=== PATIENT | female | born 1975 | race Caucasian/White ===

== ENCOUNTER 2020-03-04 20:57 | Inpatient (IN) | payer OTHER, SELFPAY ==
[2020-03-04] VITALS (15 sets, daily range): BP systolic 125–139; BP diastolic 75–85; PULSE 67–98; RESP 15–23; TEMP 36.4; O2SAT 90–99
--- NOTE | ~2020-03-04 | CT_ITS ---
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 Covid Pneumonia. TECHNIQUE: Computed tomographic angiography (CTA) of the chest, abdomen and pelvis was performed with 100 mL Omnipaque-350 intravenous contrast. The dose-length product was 2033.27 mGy-cm. Maximum inten sity projection 3D-reconstructions of the aorta and other arteries were constructed by the [employer] st on a separate workstation. Automated exposure control and iterative reconstruction technique were employed. COMPARISON: CT dated 03/04/2020. FINDINGS: Study is technically adequate without evidence for pulmonary embolism. Evaluation of the pe ripheral pulmonary arteries limited by motion artifact. No thoracic lymphadenopathy. Small pleural ef fusions. Cardiomegaly. No evidence for aortic aneurysm or dissection. There is patchy groundglass opa cification throughout both lungs, compatible with pneumonia. No endobronchial lesions. The liver, spleen, pancreas, adrenal glands and kidneys are unremarkable. Gallbladder is present. No free air or free fluid. Small fat-containing umbilical hernia. Small urachal cyst. Partial sacralizat ion of the left L5 transverse process. No acute osseous abnormality. No abnormal pelvic masses or flu id collections. IMPRESSION: 1. Patchy bilateral groundglass opacification throughout both lungs, most likely pneumonia. Edema les s favored. 2: Small pleural effusions. 3: No evidence for pulmonary embolism. Reviewed, dictated and finalized at location B. T METAL SUPERINTENDENT IMPRESSION: 1. Patchy bilateral groundglass opacification throughout both lungs, most likel y pneumonia. Edema less favored. 2: Small pleural effusions. 3: No evidence for pulmonary embolism.
--- NOTE | ~2020-03-04 | XR_ITS ---
EXAMINATION: XR chest 1V portable EXAM DATE: 03/04/2020 22:48 INDICATION: Shortness of breath, COVID positive for 5 days. Abdominal pain diarrhea and fever. TECHNIQUE: Portable AP frontal chest x-ray was obtained. Comparison is made to prior examination from 03/04/2020. FINDINGS: Scattered subsegmental bibasilar ill-defined infection and/or atelectasis. Upper lung zones are clear. Cardiomediastinal silhouette is normal. There is no pneumothorax suspected. There are no pleural effusions. IMPRESSION: 1. Scattered bibasilar subsegmental infection and/or atelectasis. Reviewed, dictated and finalized at location A. SS SERVICES ASSISTANT
--- NOTE | 2020-03-04 21:04 | ED.ABDPAIN ---
HPI - Abdominal Pain General Chief Complaint: Abdominal Pain Stated Complaint: lower abd pain/ covid + Source: patient and EMS Mode of arrival: EMS Limitations: no limitations History of Present Illness HPI narrative: 44 years old white female presents to the ED by ambulance because of fever, abdominal pain, intermittent chest heaviness. Patient had sudden onset of lower abdominal pain when she was having a bowel movement with diarrhea. Patient states she almost had a fainting episode on the toilet. Patient denies loss of consciousness. Patient started having Covid symptoms 1 week ago, patient denies. 3 days later was tested positive for COVID-19 Related Data Home Medications Medication Instructions Recorded Confirmed clonazepam [Klonopin] 1 mg PO DAILY PRN 03/04/20 hydrocodone-acetaminophen [[place]] 1 tablet PO HS PRN 03/04/20 lisinopril-hydrochlorothiazide 1 tablet PO DAILY 03/04/20 rosuvastatin [Crestor] 40 mg PO DAILY 03/04/20 Allergies Allergy/AdvReac Type Severity Reaction Status Date / Time No Known Allergies Allergy Verified 03/04/20 21:06 Review of Systems Review of Systems: Narrative: CONSTITUTIONAL: Fever EYES: Denies visual changes, redness, or discharge. ENT: Denies rhinorrhea, congestion, sore throat, or otalgia. CARDIOVASCULAR: Denies chest pain, palpitations, or edema. RESPIRATORY: Coughing GASTROINTESTINAL: Denies abdominal pain, nausea, vomiting, or diarrhea. GENITOURINARY: Denies dysuria or hematuria. SKIN: Denies rash or itching. MUSCULOSKELETAL: Denies back pain, joint pain, or myalgia. NEUROLOGIC: Denies headache, numbness, or weakness. PSYCHIATRIC: Denies anxiety or depression. PMFSH Family History Family History Mother Hypertension Social History Social History Smoking status: Former smoker Second hand tobacco smoke exposure: No Smoking end date: 04/06/08 Alcohol intake: never Exam Narrative: Exam Narrative: General appearance: Well-developed, well-nourished Skin: Normal color Eyes: Clear conjunctiva ENT: Oropharynx normal, ears normal, nose normal Neck: Supple, nontender Chest and respiratory: Airway patent, no respiratory distress, no accessory muscle use Heart: Regular rate/rhythm Abdomen: Soft, nontender, no organomegaly, quiet bowel sounds Musculoskeletal: Normal range of motion, nontender back Neurologic: Alert and oriented ?3, 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 Labs, IV fluid, CT abdomen, pelvis and chest to rule out the possibility of pulmonary embolism ordered. Further plan to follow Imaging Data My impression: CTA chest showed Nodular groundglass consolidation in a peripheral distribution in both lungs surrounding patchy groundglass and compatible with history of Covid. Superimposed pulmonary edema is also possible. Trace bilateral pleural effusion. No definite evidence of pulmonary emboli. However evaluation of the distal branches are limited due to motion artifacts. CT abdomen and pelvis with contrast showed no acute findings. Critical Care Time Critical Care Time Critical Care Time: Yes Total Critical Care Time: 50 Discharge Plan Discharge Clinical Impression: Pneumonia due to 2019 novel coronavirus, Acute respiratory failure with hypoxia Patient Disposition: Still a Patient Condition: Guarded Prognosis Additional Instructions: Admission to hospitalist, remdesivir and the dexamethasone started. P
[2020-03-04] MEDS: HYDROmorphone HCL INJ (*CRX) 1 MG/ML SYR 0.5 MG IV PUSH (21:22)
[2020-03-04] MEDS: SODIUM CHLORIDE 0.9% IV 1,000 ML 999 ML IV CONT (21:22)
--- NOTE | 2020-03-04 22:10 | PC.NURSE ---
Patient was tough stick, this nurse and 2 zone maintenance technician attempted to obtain labs. zone maintenance technician did obtain labs and labs and urine are sent down at this time.
[2020-03-04 22:14] LABS: Basophils Percent Auto 0.2 % (0.2-1.2); Eosinophils Percent Auto 0.3 % (0-4.4); Hematocrit 40.4 % (37.0-47.0); Hemoglobin 13.8 g/dL (12.0-15.0); Immature Granulocyte Absolute 0.01 K/mm3 (0.00-0.031); Immature Granulocyte Percent A 0.2 % (0-0.5); Lymphocytes Absolute Auto 1.27 K/mm3 (0.9-3.2); Lymphocytes Percent Auto 20.7 % (18.3-44.2); Mean Corpuscular HGB Conc 34.2 g/dl (32-36); Mean Corpuscular Volume 90.8 fl (80-100); Mean Platelet Volume 10.7 fl (7.4-10.4); Monocytes Absolute Auto 0.4 K/mm3 (0.1-0.6); Monocytes Percent Auto 5.7 % (2.6-8.5); Neutrophils Absolute Auto 4.5 K/mm3 (1.3-6.7); Neutrophils Percent Auto 72.9 % (45.5-73.1); Platelet Count Result 172 k/mm3 (150-375); Red Blood Count 4.45 M/mm3 (4.2-5.4); Red Cell Distribution Width 11.9 % (11.5-14.5); White Blood Count 6.1 K/mm3 (4.5-10.0)
[2020-03-04 22:18] LABS: Add Urine Microscopic? NO; Appearance Urine Clear (Clear); Bilirubin Urine Negative (Negative); Blood Urine Negative (Negative); Color Urine Yellow (Yellow); Glucose Urine UA Negative (Negative); Ketones Urine Negative (Negative); Leukocyte Esterase Ur Negative LEU/UL (Negative); Nitrate Urine Negative (Negative); Protein Urine Negative (Negative); Specific Grav Ur 1.027 (1.001-1.035); Urobilinogen Urine Negative mg/dL (<2.0)
[2020-03-04 22:26] LABS: Alanine Aminotransferase 23 U/L (4-35); Albumin Level 3.4 g/dL (3.5-5.1); Alkaline Phosphatase 59 U/L (38-126); Anion Gap 6 mmol/L (8-16); Aspartate Amino Transferase 31 U/L (14-36); Bilirubin,Total 0.3 mg/dL (0.2-1.3); Blood Urea Nitrogen 16 mg/dL (7-17); Calcium 7.9 mg/dL (8.4-10.2); Carbon Dioxide 23 mmol/L (22-30); Chloride 109 mmol/L (98-107); Estimated CRCL calculation 110 ml/min; Estimated Glomerular Filt Rate > 60; Glucose 113 mg/dL (65-105); Lipase 137 U/L (23-300); Potassium 3.9 mmol/L (3.4-5.0); Sodium 138 mmol/L (137-145)
--- NOTE | 2020-03-04 22:27 | PC.NURSE ---
Patient's oxygen saturation decreased to 85% on the monitor, ERP Dr. Matias notified and orders placed. Per ERP states ABG and chest xray to be done before oxygen placed on patient.
[2020-03-04 22:43] LABS: Alveolar/Arterial O2 Gradient 32.5 mmHg; Base Excess ABG -1.3 mEq/l (+/-2.0); Fractional Inspired Oxygen 21 %; HCO3 ABG 24.1 mEq/l (22.0-26.0); Oxygen Content ABG 18.4 %vol (16.0-22.0); Oxygen Saturation ABG 92.5 % (95.0-100.0); Oxyhemoglobin 92.4 % THb (90.0-100.0); PCO2 ABG 42.8 mmHg (35.0-45.0); PO2 FiO2 Ratio Arterial Blood 3.14 %; Total Hemoglobin 14.2 g/dL (12.0-18.0); pH ABG 7.368 (7.350-7.450)
[2020-03-04 22:44] LABS: Modified Allen's Test Pass; Site Drawn LEFT RADIAL
--- NOTE | 2020-03-04 23:04 | PC.NURSE ---
Patient in CT at this time.
--- NOTE | 2020-03-04 23:13 | PC.NURSE ---
Patient placed in 2L via NC per [facility] per ERP Dr. Matias.
[2020-03-04 23:24] LABS: D Dimer 0.47 ug/mL (<0.48)
[2020-03-05] VITALS (11 sets, daily range): BP systolic 111–122; BP diastolic 58–81; PULSE 55–83; RESP 16–20; TEMP 36.1–36.7; O2SAT 92–99; BMI 40.1
--- NOTE | 2020-03-05 00:32 | PM.IMHP ---
H&P: HPI History of Present Illness Date/Time: 03/05/20 00:32 Chief complaint: COVID PNEUMONIA, ACUTE HYPOXIC RESPIRATORY FAILURE Narrative: Nikki Campbell is a 44 year old female with PMHx significant for HTN, Dislipidemia, Anxiety presented to ED after she had excrutiating pain like passin out whilae she was having a bowel movement sitting on the toilette, had diarrhea for about 3 days now, was recently diagnosed with CoVID 19 tested positive 5 days ago, has had muscle aches and pains, fevers, chills, sob, dry cough ,abdominal pain, diarrhea. Preliminary work up is significant for CTA with ground glass opacity of the lungs. CT of abdomen and pelvis was low yielding. Review of Systems Review of Systems: Narrative: Fevers, chills, muscle aches and pains, sob, dry cough, abdominal pain. Constitutional: Constitutional: Reports body ache(s), Reports chills, Reports fatigue and Reports fever(s) Eyes: Comments: no vision changes. ENT: Comments: nasal congestion, no sore throat. Cardiovascular: Comments: no chest pain. Respiratory: Comments: sob, dry cough. Gastrointestinal: Comments: abdominal pain, diarrhea. Musculoskeletal: Musculoskeletal: Reports myalgias Integumentary/Breasts: Comments: no rashes. Neurologic: Comments: no sensory motor deficit. Hematologic/Lymphatic: Comments: no LAP PMFSH Family History Family History Mother Hypertension Social History Social History Smoking status: Former smoker Second hand tobacco smoke exposure: No Smoking end date: 04/06/08 Alcohol intake: never Meds Home Medications and Allergies Home Medications Medication Instructions Recorded Confirmed Type clonazepam [Klonopin] 1 mg PO DAILY PRN 03/04/20 History hydrocodone-acetaminophen [[place]] 1 tablet PO HS PRN 03/04/20 History lisinopril-hydrochlorothiazide 1 tablet PO DAILY 03/04/20 History rosuvastatin [Crestor] 40 mg PO DAILY 03/04/20 History Allergies Allergy/AdvReac Type Severity Reaction Status Date / Time No Known Allergies Allergy Verified 03/04/20 21:06 Vital Signs Vital Signs - 24 hr 03/04/20 20:54 03/04/20 21:10 03/04/20 21:15 Temperature 97.6 F Pulse Rate 82 98 79 Respiratory Rate 22 H Blood Pressure 125/83 Pulse Oximetry 92 90 03/04/20 21:30 03/04/20 21:45 03/04/20 22:00 Temperature Pulse Rate 74 72 74 Respiratory Rate 16 21 H 22 H Blood Pressure Pulse Oximetry 98 90 91 03/04/20 22:02 03/04/20 22:15 03/04/20 22:30 Temperature Pulse Rate 68 67 70 Respiratory Rate 20 19 20 Blood Pressure 129/85 Pulse Oximetry 91 91 94 03/04/20 22:45 03/04/20 22:47 03/04/20 23:13 Temperature Pulse Rate 73 77 76 Respiratory Rate 23 H 19 19 Blood Pressure 127/75 136/81 Pulse Oximetry 99 03/04/20 23:17 03/04/20 23:33 03/04/20 23:45 Temperature Pulse Rate 85 75 78 Respiratory Rate 15 16 21 H Blood Pressure 139/77 Pulse Oximetry 98 97 95 Exam Narrative: Exam Narrative: 44 yo female presents to ED due to abdominal pain, sob, dry cough, fevers, chills. Const: General: cooperative, comfortable, no acute distress, well developed, alert, awake, Physically active and other (Acutely ill looking.) Nutritional Appearance: average body habitus Orientation/consciousness: patient oriented x3 Limitations: no limitations HENMT: Head: normal to inspection and normocephalic Ears: hearing grossly normal bilaterally General nose exam: Normal external nose present Face and sinus: normal facial exam Mouth: Yes Normal oral and palatal mucosa present Eyes: General: appearance normal, both eyes and all related structures Pupils: Equal, round and reactive pupils present EOM: EOMs intact bilaterally Neck: Neck: normal visual inspection, no lymphadenopathy and no JVD Resp: Effort & Inspection: normal respiratory effort Auscultation: clear to
[2020-03-05] MEDS: REMDESIVIR 200 MG/NS 250 ML 200 MG/250 ML BAG 250 MG IVPB (00:37)
--- NOTE | 2020-03-05 02:22 | ADMGEN ---
At 0120 am, this patient, Nikki Campbell, was admitted to [address] [place] [address] Room 321-01. Patient/family oriented to hospital policies and general routines including ID bracelet, bed and alarms, visiting hours, pain management, procedures, bathroom and other care routines, personal items, smoking policy, room service/diet, and visiting hours. Information on how to activate the Rapid Response Team has been discussed. Patient/Family are encouraged to report perceived risks to care and to ask questions if they do not understand what they are told or what they should do.
[2020-03-05 08:25] LABS: Alanine Aminotransferase 20 U/L (4-35)
[2020-03-05] MEDS: DEXAMETHASONE SOD PHOS INJ 4 MG/ML VIAL 6 MG IV PUSH (08:59)
[2020-03-05] MEDS: hydroCHLOROthiazide 12.5 MG CAPSULE PO (08:59)
[2020-03-05] MEDS: lisinopriL 10 MG TABLET PO (08:59)
[2020-03-05] MEDS: POTASSIUM CHLORIDE 20 MEQ TABLET.ER PO (08:59)
[2020-03-05] MEDS: ALBUTEROL SULFATE (*SP) AEROSOL 1 PUFF 2 PUFF INHALATION ×2 (11:20→16:13)
--- NOTE | 2020-03-05 11:44 | PCRCNOTE ---
Window of time for administration has passed. See next scheduled administration. for 0800 tx.
--- NOTE | 2020-03-05 15:41 | PM.IMPN ---
Progress Note: A&P Assessment and Plan (1) Pneumonia due to 2019 novel coronavirus: Code(s): U07.1 - COVID-19; J12.89 - Other viral pneumonia Status: Acute Assessment and Plan: Admit to Covid isoloation Vitals as per unit protocol heart healthy diet Remdesivir + Dexamethasone + nebulizer txs + mucinex + serial labs and CXRs to trend informed patient of CXR and CT scan results, no PE, bilateral bibasilar COVID pneumonia noted. Dimer wnl at 0.47 ordered Incentive Spirometer and PT eval (2) Acute respiratory failure with hypoxia: Code(s): J96.01 - Acute respiratory failure with hypoxia Status: Acute Assessment and Plan: Currently on 2 L by NC (increased from admission) O2sat at 96% Continuous pulse ox. see above plan (3) Abdominal pain, vomiting, and diarrhea: Code(s): R10.9 - Unspecified abdominal pain; R11.10 - Vomiting, unspecified; R19.7 - Diarrhea, unspecified Status: Acute Assessment and Plan: Likely secondary to Covid 19 infection. lipase wnl at 137 UA clear Supportive care slowly improving nausea helped with zofran eating 25-50% meals (4) HTN (hypertension): Code(s): I10 - Essential (primary) hypertension Status: Acute Assessment and Plan: Well controlled Resume home meds BP 120/72 and 122/72 HR 55-62 Subjective Date/time seen: 03/05/20 15:42 Nikki is feeling slightly better than admission, but still requiring supplemental O2. She is not coughing yet, but hasnt used an Incentive Spirometer or gotten out of bed today yet. Ordered out of bed for meals and PT eval. She is currently requiring 2 L O2 NC with bedrest. Ordered IS, started on Lovenox BID, mucinex, nebulizer txs, Remdesivir, and serial CXRs, and serial labs to trend. Will collect a sputum culture if productive cough starts. 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 She continues to have nausea, but no vomiting today. Stated that the zofran is helping. She was able to eat her sandwich for lunch, but that was all. Review of Systems Constitutional: Constitutional: Reports as per HPI, Reports body ache(s), Reports chills, Reports fatigue, Reports fever(s), Reports lethargy, Reports malaise and Reports weakness Eyes: Eyes: Reports as per HPI, Denies exophthalmos, Denies diplopia, Denies floaters and Denies loss of peripheral vision ENT: Denies facial pain, Denies headache(s), Denies odynophagia and Denies tinnitus Cardiovascular: Cardiovascular: Denies chest pain, Denies chest pain at rest, Denies chest pain with activity, Reports lightheadedness, Reports dyspnea and Reports dyspnea on exertion Respiratory: Respiratory: Reports as per HPI, Denies chest congestion, Denies cough, Denies hemoptysis, Reports dyspnea and Denies snoring Gastrointestinal: Gastrointestinal: Reports as per HPI and Denies odynophagia Genitourinary: Genitourinary: Reports as per HPI Musculoskeletal: Musculoskeletal: Reports as per HPI and Reports myalgias Integumentary/Breasts: Skin/Breast: Reports as per HPI Neurologic: Reports as per HPI, Reports Normal hearing present, Denies Abnormal speech present, Reports syncope (near syncope at home), Denies headache(s) and Denies memory loss Psychiatric: Psychiatric: Reports as per HPI and Denies confusion Endocrine: Endocrine: Reports as per HPI and Reports fatigue Exam Narrative: Exam Narrative: 44 yo female presents to ED due to abdominal pain, sob, dry cough, fevers, chills. Const: General: cooperative, comfortable, no acute distress, well developed, alert, awake, Physically active, in distress mild, ill appearing and other (Acutely ill looking.); No acute distress Nutritional Appearance: average body habitus Orientation/consciousness: patient oriented x3 Limitations: no limitations HENMT: Head: normal to inspection and normocephalic Ears: hearing grossly normal
[2020-03-05 15:57] LABS: Hematocrit 42.7 % (37.0-47.0); Hemoglobin 14.6 g/dL (12.0-15.0); Mean Corpuscular HGB Conc 34.2 g/dl (32-36); Mean Corpuscular Hemoglobin 30.6 pg (26-34); Mean Corpuscular Volume 89.5 fl (80-100); Mean Platelet Volume 10.7 fl (7.4-10.4); Platelet Count Result 183 k/mm3 (150-375); Red Blood Count 4.77 M/mm3 (4.2-5.4); Red Cell Distribution Width 11.8 % (11.5-14.5); White Blood Count 4.7 K/mm3 (4.5-10.0)
[2020-03-05] MEDS: HYDROcodone/acetaminophen (*CRX) 5-325 MG TABLET 1 TAB PO ×2 (16:26→20:42)
[2020-03-05] MEDS: ENOXAPARIN 40 MG/0.4 ML SYRINGE SUB-Q (20:14)
[2020-03-05] MEDS: guaiFENesin 12 HR 600 MG TABCR 1200 MG PO (20:14)
[2020-03-05] MEDS: FAMOTIDINE 20 MG TABLET PO (20:14)
[2020-03-05] MEDS: clonazePAM (*CRX) 0.5 MG TABLET 1 MG PO (20:35)
[2020-03-05] MEDS: REMDESIVIR 100 MG/NS 250 ML 100 MG/250 ML BAG 250 MG IVPB (23:39)
[2020-03-06] VITALS (11 sets, daily range): BP systolic 96–117; BP diastolic 52–80; PULSE 54–72; RESP 16–20; TEMP 36.1–36.6; O2SAT 93–99
[2020-03-06] MEDS: ALBUTEROL SULFATE NEB 2.5 MG/0.5 ML INH INHALATION (03:18)
[2020-03-06] MEDS: IPRATROPIUM BR 0.02% INH SOLN 0.5 MG/2.5 ML VIAL INHALATION (03:18)
[2020-03-06 07:54] LABS: Alanine Aminotransferase 21 U/L (4-35); Albumin Level 3.4 g/dL (3.5-5.1); Alkaline Phosphatase 45 U/L (38-126); Anion Gap 2 mmol/L (8-16); Aspartate Amino Transferase 26 U/L (14-36); Bilirubin,Total 0.5 mg/dL (0.2-1.3); Blood Urea Nitrogen 13 mg/dL (7-17); CRP < 0.5 mg/dL (<1.0); Calcium 8.6 mg/dL (8.4-10.2); Carbon Dioxide 30 mmol/L (22-30); Chloride 105 mmol/L (98-107); Estimated CRCL calculation 110 ml/min; Estimated Glomerular Filt Rate > 60; Glucose 120 mg/dL (65-105); Lactate Dehydrogenase 405 U/L (313-618); Sodium 137 mmol/L (137-145)
[2020-03-06] MEDS: HYDROcodone/acetaminophen (*CRX) 5-325 MG TABLET 1 TAB PO ×3 (08:49→20:29)
[2020-03-06] MEDS: ENOXAPARIN 40 MG/0.4 ML SYRINGE SUB-Q ×2 (08:51→20:27)
[2020-03-06] MEDS: DEXAMETHASONE SOD PHOS INJ 4 MG/ML VIAL 6 MG IV PUSH (08:51)
[2020-03-06] MEDS: FAMOTIDINE 20 MG TABLET PO ×2 (08:52→20:28)
[2020-03-06] MEDS: lisinopriL 10 MG TABLET PO (08:52)
[2020-03-06] MEDS: hydroCHLOROthiazide 12.5 MG CAPSULE PO (08:52)
[2020-03-06] MEDS: guaiFENesin 12 HR 600 MG TABCR 1200 MG PO ×2 (08:52→20:28)
[2020-03-06] MEDS: ALBUTEROL SULFATE (*SP) AEROSOL 1 PUFF 2 PUFF INHALATION ×4 (09:10→21:59)
--- NOTE | 2020-03-06 15:25 | PM.IMPN ---
Progress Note: A&P Assessment and Plan (1) Pneumonia due to 2019 novel coronavirus: Code(s): U07.1 - COVID-19; J12.89 - Other viral pneumonia Status: Acute Assessment and Plan: As evident of chest CTA; no PE noted. Patient feeling better today. Still requiring 1L O2 NC (although EMR documentation has RA). Clinical improvement overnight Continue treatment with Remdesivir (3/5) Continue with dexamethasone (day 3) Continue supportive care with PRN albuterol, IS, Tylenol for fevers, Mucinex for cough Trend Labs tomorrow Wean O2 as tolerated Monitor for clinical improvement (2) Acute respiratory failure with hypoxia: Code(s): J96.01 - Acute respiratory failure with hypoxia Status: Acute Assessment and Plan: Currently on 1 L O2 NC. Likely secondary to above Wean O2 as tolerated Continue treatment as above (3) Abdominal pain, vomiting, and diarrhea: Code(s): R10.9 - Unspecified abdominal pain; R11.10 - Vomiting, unspecified; R19.7 - Diarrhea, unspecified Status: Acute Assessment and Plan: Likely secondary to Covid [address] abd/pelvis unremarkable. Lipase WNL. This appears to have resolved. Continue supportive care Zofran PRN Monitor (4) HTN (hypertension): Code(s): I10 - Essential (primary) hypertension Status: Acute Assessment and Plan: BP 110s sys this afternoon. Continue home meds Subjective Date/time seen: 03/06/20 15:25 Interval history: Patient is a 44 yo F with history of HTN, Dyslipidemia, and Anxiety who is here for treatment of COVID pneumonia and acute respiratory failure with hypoxia likely due to same. Patient states she feels better today. She feels a bit jittery, but thinks this is due to the steroid therapy. Her SOB has improved and her diarrhea/abdominal pain have resolved. She is tolerating PO okay. She notes sweats, but no subjective fevers/chills. No other complaints. Denies myalgias/arthralgias, headaches, cp/palpitations, n/v/d/c, current abd pain, dysuria, hematuria, cloudy urine, calf pain/swelling. Review of Systems Review of Systems: All systems reviewed & are unremarkable except as noted in HPI and below Exam Narrative: Exam Narrative: General: Patient resting supine in bed in no acute distress. HEENT: Normocephalic, EOMI, oral mucosa moist. Cardiovascular: Rate and rhythm are regular. No notable murmur, rub, or gallop. Respiratory: Lungs clear to auscultation all dennison, decreased BS diffusely. Non-labored breathing. On 1L O2 NC Abdomen: Soft, non-tender, non-distended, bowel sounds present but hypoactive Extremities: Peripheral pulses intact. No edema. Neuro: No focal neurological deficits. Speech is clear. Objective Data Vital Signs Vital Signs: Last Vital Signs Temp 97.6 F 03/06/20 12:00 Pulse 63 03/06/20 12:00 Resp 20 03/06/20 12:00 BP 113/80 03/06/20 12:00 Pulse Ox 95 03/06/20 12:20 Intake/Output Intake/Output: Intake & Output 03/03/20 03/04/20 03/05/20 03/06/20 23:59 23:59 23:59 23:59 Intake Total 1000 1940 1110 Output Total 1100 Balance 5885 [id number] 9021 Meds/Results Medications: Active Medications Generic Name Dose Route Start Last Admin Trade Name Freq PRN Reason Stop Dose Admin Acetaminophen 1,000 mg 03/05/20 15:22 Acetaminophen 500 Mg Tablet PO Q6H PRN Mild Pain or Fever Hydrocodone Bitart/Acetaminophen 1 tab 03/05/20 15:23 03/06/20 14:47 Hydrocodone/Acetaminophen (*Crx) 5-325 Mg Tablet PO 1 tab Q6H PRN Administration Pain 4-10 Albuterol 2.5 mg 03/05/20 20:00 03/06/20 03:18 Albuterol Sulfate Neb 2.5 Mg/0.5 Ml Inh INHALATION 2.5 mg Q6HRT NEYMAR Administration Albuterol 2 puff 03/06/20 08:00 03/06/20 12:20 Albuterol Sulfate (*Sp) Aerosol 1 Puff INHAL
[2020-03-06 16:06] LABS: Hematocrit 42.9 % (37.0-47.0); Hemoglobin 14.7 g/dL (12.0-15.0); Mean Corpuscular HGB Conc 34.3 g/dl (32-36); Mean Corpuscular Hemoglobin 30.8 pg (26-34); Mean Corpuscular Volume 89.9 fl (80-100); Mean Platelet Volume 10.7 fl (7.4-10.4); Platelet Count Result 208 k/mm3 (150-375); Red Blood Count 4.77 M/mm3 (4.2-5.4); Red Cell Distribution Width 11.9 % (11.5-14.5); White Blood Count 5.6 K/mm3 (4.5-10.0)
[2020-03-06] MEDS: clonazePAM (*CRX) 0.5 MG TABLET 1 MG PO (20:28)
[2020-03-06] MEDS: ALBUTEROL SULFATE (*SP) INHALER 1 PUFF (22:00)
[2020-03-06] MEDS: REMDESIVIR 100 MG/NS 250 ML 100 MG/250 ML BAG 250 MG IVPB (22:43)
[2020-03-07] VITALS: BP 101/54; PULSE 50; RESP 20; TEMP 36.8; O2SAT 95
[2020-03-07 04:00] VITALS: BP 101/58; PULSE 50; RESP 20; TEMP 37; O2SAT 96
[2020-03-07 06:43] LABS: Basophils Percent Auto 0.3 % (0.2-1.2); Eosinophils Percent Auto 0.1 % (0-4.4); Hematocrit 43.6 % (37.0-47.0); Hemoglobin 14.5 g/dL (12.0-15.0); Immature Granulocyte Absolute 0.03 K/mm3 (0.00-0.031); Immature Granulocyte Percent A 0.4 % (0-0.5); Lymphocytes Absolute Auto 2.73 K/mm3 (0.9-3.2); Lymphocytes Percent Auto 35.9 % (18.3-44.2); Mean Corpuscular HGB Conc 33.3 g/dl (32-36); Mean Corpuscular Hemoglobin 29.6 pg (26-34); Monocytes Absolute Auto 0.5 K/mm3 (0.1-0.6); Neutrophils Absolute Auto 4.3 K/mm3 (1.3-6.7); Neutrophils Percent Auto 56.3 % (45.5-73.1); Platelet Count Result 242 k/mm3 (150-375); Red Cell Distribution Width 11.9 % (11.5-14.5); White Blood Count 7.6 K/mm3 (4.5-10.0)
[2020-03-07 06:56] LABS: Magnesium 1.8 mg/dL (1.6-2.3)
[2020-03-07 06:57] LABS: Alanine Aminotransferase 24 U/L (4-35); Alkaline Phosphatase 48 U/L (38-126); Anion Gap 4 mmol/L (8-16); Aspartate Amino Transferase 26 U/L (14-36); Bilirubin,Total 0.6 mg/dL (0.2-1.3); Blood Urea Nitrogen 17 mg/dL (7-17); Calcium 9.2 mg/dL (8.4-10.2); Carbon Dioxide 32 mmol/L (22-30); Chloride 101 mmol/L (98-107); Estimated CRCL calculation 110 ml/min; Estimated Glomerular Filt Rate > 60; Glucose 107 mg/dL (65-105); Potassium 3.9 mmol/L (3.4-5.0); Sodium 137 mmol/L (137-145)
[2020-03-07 08:00] VITALS: BP 107/60; PULSE 50; RESP 16; TEMP 36.9; O2SAT 99
[2020-03-07] MEDS: ENOXAPARIN 40 MG/0.4 ML SYRINGE SUB-Q (08:50)
[2020-03-07] MEDS: DEXAMETHASONE SOD PHOS INJ 4 MG/ML VIAL 6 MG IV PUSH (08:50)
[2020-03-07] MEDS: FAMOTIDINE 20 MG TABLET PO (08:50)
[2020-03-07] MEDS: guaiFENesin 12 HR 600 MG TABCR 1200 MG PO (08:51)
[2020-03-07] MEDS: ALBUTEROL SULFATE (*SP) AEROSOL 1 PUFF 2 PUFF INHALATION ×4 (09:04→20:53)
[2020-03-07] MEDS: ONDANSETRON INJ 4 MG/2 ML VIAL IV PUSH (09:16)
[2020-03-07] MEDS: ACETAMINOPHEN 500 MG TABLET 1000 MG PO (11:10)
[2020-03-07 12:00] VITALS: BP 114/58; PULSE 79; RESP 16; TEMP 36.9; O2SAT 94
--- NOTE | 2020-03-07 13:40 | PM.DS ---
DS: Admitting Diagnosis Admitting Diagnosis Admitting Diagnosis: COVID PNEUMONIA, ACUTE HYPOXIC RESPIRATORY FAILURE DS: Discharge Diagnosis Discharge Diagnosis (1) Pneumonia due to 2019 novel coronavirus: Code(s): U07.1 - COVID-19; J12.89 - Other viral pneumonia Status: Acute Assessment and Plan: As evident of chest CTA; no PE noted. Patient feeling better again today and wishing to be discharge. Has been on RA since 03/06. Clinical improvement again overnight Received Remdesivir x 4 days during stay Dexamethasone x 4 days during stay Continue supportive care with PRN albuterol, IS, Tylenol for fevers, Mucinex for cough F/u with PCP Encouraged PO intake (2) Acute respiratory failure with hypoxia: Code(s): J96.01 - Acute respiratory failure with hypoxia Status: Acute Assessment and Plan: RA since 03/06. Likely secondary to above D/c today after 4th dose of Remdesivir (3) Abdominal pain, vomiting, and diarrhea: Code(s): R10.9 - Unspecified abdominal pain; R11.10 - Vomiting, unspecified; R19.7 - Diarrhea, unspecified Status: Acute Assessment and Plan: Likely secondary to Covid [address] abd/pelvis unremarkable. Lipase WNL. This appears to have resolved. Continue supportive care Zofran PRN (4) HTN (hypertension): Code(s): I10 - Essential (primary) hypertension Status: Acute Assessment and Plan: BP 110s sys this afternoon. Continue home meds DS: Summary Hospital Course Reason for hospitalization: COVID PNA/acute respiratory failure with hypoxia Hospital Course: Date of arrival:03/05/20 Date of discharge: 03/07/20 Patient is a 44 yo F with history of HTN, Dyslipidemia, and Anxiety who presented to the ED on 03/04 with complaints of feeling like passing out after having excruciating abdominal pain while having a BM. Patient tested positive for COVID roughly 5 days prior to arrival. While in the ED, she was found to be hypoxic requiring 2L O2 NC in the ED. CXR had findings suggestive of pneumonia. CTA of chest also showed evidence of pneumonia after d-dimer returned abnormal. CTA of abd/pelvis was unremarkable. Remdesivir was initiated in the ED, as well as, decadron. Patient admitted under this setting. Please see H&P for further details. Patient was admitted to the hospitalist service for further management/treatment. Patient was continued on Remdesivir and dexamethasone and had total of 4 doses of both during hospital course. Given patient significant clinical improvement over her hospital stay, she was able to be weaned down to room air for 24 hours and plan was for her to be discharge home with further supportive care of tylenol, mucinex, and albuterol as needed which she received during her stay in conjunction with antiviral and steroids. Patient afebrile throughout stay and VS remained stable. She was to follow up with PCP after discharge and to discuss how long she should isolate after discharge. Nausea, vomiting, diarrhea and abdominal pain had resolved early in clinical course. Patient agreeable and comfortable with plan for discharge. Patient hemodynamically stable and in improved condition for discharge on 03/07 Status at Discharge Overall status at discharge: patient is progressing back to baseline Time Spent with Patient Time attestation: Total time spent providing and/or coordinating discharge services: Time spent: Greater than 30 minutes Exam Narrative: Exam Narrative: General: Patient sitting upright in bed in no acute distress. HEENT: Normocephalic, EOMI, oral mucosa moist. Cardiovascular: Rate and rhythm are regular. No notable murmur, rub, or gallop. Respiratory: Lungs clear to auscultation all dennison, decreased BS diffusely but s
[2020-03-07] MEDS: HYDROcodone/acetaminophen (*CRX) 5-325 MG TABLET 1 TAB PO (14:54)
[2020-03-07 16:00] VITALS: BP 123/65; PULSE 66; RESP 16; TEMP 36.7; O2SAT 97
[2020-03-07] MEDS: REMDESIVIR 100 MG/NS 250 ML 100 MG/250 ML BAG 250 MG IVPB (17:01)
== END 2020-03-07 19:55 | disposition home or self-care (01) | DRG 177 ==
LOC: ANHED 03-05 00:29 → ANH3MEDSUR 03-05 07:08
PROVIDERS: Nurse Practitioner; Admitting Provider Internal Medicine; Emergency Provider Emergency Medicine; Visit Provider Physician Assistant
DX: U07.1 COVID-19 (principal); J12.89 Other viral pneumonia; J96.01 Acute respiratory failure with hypoxia; R10.9 Unspecified abdominal pain; R19.7 Diarrhea, unspecified; I10 Essential (primary) hypertension; E78.5 Hyperlipidemia, unspecified; F41.9 Anxiety disorder, unspecified; Z87.891 Personal history of nicotine dependence; Z79.899 Other long term (current) drug therapy
CPT/HCPCS: 36415; 36600; 71045; 71275; 74177; 80053; 81003; 81025; 82728; 82805; 83615; 83690; 83735; 84460; 85025; 85027; 85380; 86140; 94640; 96361; 96374; 97161; 99285; A9270; J0131; J1100; J1170; J1650; J2405; J7030; Q9967

== ENCOUNTER 2020-03-13 10:16 | Outpatient (CLI) | payer OTHER, SELFPAY ==
--- NOTE | ~2020-03-13 | XR_ITS ---
XR chest 2V DATE: 03/13/2020 10:37 INDICATION: Pneumonia TECHNIQUE: PA and lateral views COMPARISON: 03/04/2020 portable AP chest 03/04/2020 CT pulmonary scan FINDINGS: Heart size is normal. No hilar or mediastinal enlargement. There is minimal infiltrate or a telectasis in the right lower lung zone. The lungs otherwise appear clear. No pleural effusion or pul monary vascular congestion or pneumothorax. IMPRESSION: Minimal residual infiltrate or atelectasis, right lower lung Reviewed, dictated and finalized at location A. ALING OPERATOR
== END 2020-03-13 10:17 | disposition home or self-care (01) ==
LOC: ANHIMG 10:26
PROVIDERS: PCP Nurse Practitioner; Visit Provider Nurse Practitioner
DX: J12.89 Other viral pneumonia (principal); U07.1 COVID-19; R91.8 Other nonspecific abnormal finding of lung field
CPT/HCPCS: 71046

== ENCOUNTER 2023-05-29 12:13 | Emergency (ER) | payer OTHER, SELFPAY ==
[2023-05-29 12:29] VITALS: BP 117/61; PULSE 65; RESP 16; TEMP 36.3; O2SAT 100
--- NOTE | 2023-05-29 13:22 | PC.NURSE ---
pt declines to be seen due to wait time, ambulated out in NAD w/ steady gait
== END 2023-05-29 13:37 | disposition left against medical advice (07) ==
LOC: ANHED 13:25
PROVIDERS: PCP Nurse Practitioner
DX: R07.9 Chest pain, unspecified (principal)
CPT/HCPCS: 99199

== ENCOUNTER 2023-05-29 14:47 | Emergency (ER) | payer OTHER, SELFPAY ==
--- NOTE | ~2023-05-29 | XR_ITS ---
EXAMINATION: XR ribs LT 2V w CXR 2V INDICATION: Left lower rib pain TECHNIQUE: Frontal and lateral views of the chest and 3 views of the left ribs were obtained. COMPARISON: 03/13/2020 FINDINGS: The lungs are free of acute opacities. No pleural effusion or pneumothorax. The cardiomedia stinal silhouette is normal. No displacement fracture is identified. The visualized osseous structure s are unremarkable. IMPRESSION: 1. No acute cardiopulmonary abnormality or evidence of displaced rib fracture. Reviewed, dictated and finalized at location B. OLOGY DIRECTOR
[2023-05-29 14:51] VITALS: BP 118/81; PULSE 85; RESP 14; TEMP 36.6; O2SAT 97
--- NOTE | 2023-05-29 14:52 | ED.BACK ---
HPI - Back Pain/Injury General Chief Complaint: Back Pain/Injury Stated Complaint: Left side injury Time Seen by Provider: 05/29/23 14:52 Source: patient Mode of arrival: ambulatory Limitations: no limitations History of Present Illness HPI Narrative: patient is a 47-year-old female with left middle rib pain after throwing a large branch of a tree prior to arrival. She heard a pop sound and has had pain in the left ribs since that event. MD elicited complaint: other ( Left middle ribs from the front to the back) Pertinent past history: recent trauma Onset (ago): hour(s) (1) Timing: constant Severity: moderate Pain scale (0-10): 6 Similar Symptoms Previously: No Quality: sharp and spasming Location: thoracic spine and left upper back Radiation: chest ( left side following the rib line midline) Exacerbating factors: movement Relieving factors: immobilization Context: while lifting, turning/twisting and trauma Associated symptoms: denies other symptoms Work related injury: No Related Data Home Medications Medication Instructions Recorded Confirmed clonazepam 1 mg tablet (Klonopin) 1 mg PO DAILY PRN Anxiety 03/04/20 05/29/23 rosuvastatin 40 mg tablet (Crestor) 40 mg PO DAILY 03/04/20 05/29/23 Allergies Allergy/AdvReac Type Severity Reaction Status Date / Time No Known Allergies Allergy Verified 05/29/23 15:33 Review of Systems Review of Systems: All systems reviewed & are unremarkable except as noted in HPI and below Constitutional: Constitutional: Reports no additional constitutional complaints Eyes: Eyes: Reports no additional eye complaints ENT: Reports system reviewed and no additional complaints, except as documented Cardiovascular: Cardiovascular: Reports no additional cardiovascular complaints Respiratory: Respiratory: Reports no additional respiratory complaints Gastrointestinal: Gastrointestinal: Reports no additional gastrointestinal complaints Genitourinary: Genitourinary: Reports no additional female genitourinary complaints Musculoskeletal: Musculoskeletal: Reports no additional musculoskeletal complaints Integumentary/Breasts: Skin/Breast: Reports system reviewed and no additional complaints, except as docu Neurologic: Reports system reviewed and no additional complaints, except as documented Psychiatric: Psychiatric: Reports no additional psychiatric complaints Endocrine: Endocrine: Reports no additional endocrine complaints Hematologic/Lymphatic: Hematologic/Lymphatic: Reports no additional hematologic/lymphatic complaints Allergic/Immunologic: Allergic/Immunologic: Reports no additional allergic/immunologic complaints [facility] Family History Family History Mother Hypertension Social History Social History Smoking status: Former smoker Second hand tobacco smoke exposure: No Smoking end date: 04/06/08 Alcohol intake: never Substance use: never Substance use type: does not use Gender identity (if verbalized by the patient): Female Sexual Orientation (if Verbalized by the Patient): Straight or Heterosexual Spiritual care concerns: No Exam Const: General: healthy appearing Nutritional Appearance: well nourished Orientation/consciousness: patient oriented x3 HENMT: Head: normal to inspection Ears: external ears normal Face/Nose/Sinus: Normal external nose present Eyes: Conjunctivae: conjunctivae normal Pupils: Equal, round and reactive pupils present EOM: EOMs intact bilaterally Neck: Neck: normal visual inspection Chest: Chest palpation & inspection: normal inspection of the chest Resp: Effort & Inspection: normal respiratory effort and not labored Auscultation: clear to auscultation bilaterally and no crackles Cardio: Rate: regular rate Rhythm: regular rhythm Heart sounds: no murmurs GI: Inspection: non-distended GI Palp: Yes Soft to pa
[2023-05-29 14:53] VITALS: BP 118/81; PULSE 85; RESP 16; TEMP 36.6; O2SAT 100
[2023-05-29] MEDS: KETOROLAC (*BKC) 60 MG/2 ML VIAL IM (15:04)
== END 2023-05-29 15:40 | disposition home or self-care (01) ==
LOC: CHSED 15:33
PROVIDERS: Emergency Provider Emergency Medicine; PCP Family Medicine
DX: S23.41XA Sprain of ribs, initial encounter (principal); Z79.899 Other long term (current) drug therapy; Z87.891 Personal history of nicotine dependence; X50.0XXA Overexertion from strenuous movement or load, initial encounter
CPT/HCPCS: 71046; 71100; 96372; 99283; J1885

== ENCOUNTER 2023-06-19 11:56 | Emergency (ER) | payer OTHER, SELFPAY ==
[2023-06-19 12:02] VITALS: BP 111/74; PULSE 100; RESP 16; TEMP 36.6; O2SAT 98
[2023-06-19] MEDS: KETOROLAC 30 MG/ML VIAL (*BKC) IM (12:37)
[2023-06-19 12:38] LABS: Appearance Urine Clear (Clear); Bacteria Urine None Seen /hpf; Bilirubin Urine Negative (Negative); Blood Urine 1+ (Negative); Color Urine Yellow (Yellow); Glucose Urine UA Negative (Negative); Ketones Urine Negative (Negative); Leukocyte Esterase Ur Negative LEU/UL (Negative); Nitrate Urine Negative (Negative); Non Pathogenic Casts 0-2; Protein Urine Negative (Negative); Specific Grav Ur 1.008 (1.001-1.035); Squamous Epithelial Cell Urine None Seen /hpf (Few); Urobilinogen Urine 0.2 mg/dL (<2.0); WBC Urine 0-5 /hpf (0-3)
[2023-06-19 12:43] LABS: Add Urine Microscopic? YES
[2023-06-19] MEDS: traMADol HCL (*CRX) 25 MG TABLET PO (13:26)
--- NOTE | 2023-06-19 14:53 | ED.FEMALEGU ---
HPI - Female Genitourinary General Chief complaint: Vaginal Bleeding Stated complaint: vaginal bleeding Time Seen by Provider: 06/19/23 12:01 History of Present Illness HPI Narrative: patient presenting here with vaginal bleeding pain discomfort, has been ongoing for The last 1-2 months. sometimes she feels like she is suffering a prolapse, having difficulty being intimate with her as a result. She had ablation done and has multiple D&Cs, and has not had a period in a long time. Related Data Home Medications Medication Instructions Recorded Confirmed clonazepam 1 mg tablet (Klonopin) 1 mg PO DAILY PRN Anxiety 03/04/20 05/29/23 rosuvastatin 40 mg tablet (Crestor) 40 mg PO DAILY 03/04/20 05/29/23 Allergies Allergy/AdvReac Type Severity Reaction Status Date / Time No Known Allergies Allergy Verified 05/29/23 15:33 Review of Systems Review of Systems: CONST: No fever. HEENT: No sore throat C/V: No chest pain RESP: No cough GI: Some pelvic cramping : some vaginal bleeding and possible prolapse M/S: No joint pain. SKIN: No rash. NEURO: [No headache or focal numbness or weakness] PSYCH: [No depression] PMFSH Family History Family History Mother Hypertension Social History Social History Smoking status: Former smoker Second hand tobacco smoke exposure: No Smoking end date: 04/06/08 Alcohol intake: never Substance use: never Substance use type: does not use Gender identity (if verbalized by the patient): Female Sexual Orientation (if Verbalized by the Patient): Straight or Heterosexual Spiritual care concerns: No Exam Narrative: EXAMINATION OF ORGAN SYSTEMS/BODY AREAS: Constitutional: Vital signs per nursing GENERAL:[No acute distress, non-toxic appearing.] HEAD: Normal with no signs of head trauma. EYES: EOMI, conjunctiva normal ENT: Hearing grossly intact LUNGS: Nonlabored breathing. HEART: [Regular rate and rhythm] ABD: [Soft], [nontender to palpation] : Some scant blood in vaginal vault; no obvious prolapse visualized. Cervix in position in vault. EXT: Normal range of motion SKIN: [No rashes or lesions.] NEURO: [Alert and oriented x 3. No gross focal sensory or strength deficits.] PSYCH: Normal affect Course Vital Signs Vital signs: Vital Signs Temperature 97.8 F 06/19/23 12:02 Pulse Rate 100 06/19/23 12:02 Respiratory Rate 16 06/19/23 12:02 Blood Pressure 111/74 06/19/23 12:02 Pulse Oximetry 98 06/19/23 12:02 Temperature 97.8 F 06/19/23 12:02 Pulse Rate 100 06/19/23 12:02 Respiratory Rate 16 06/19/23 12:02 Blood Pressure 111/74 06/19/23 12:02 Pulse Oximetry 98 06/19/23 12:02 MDM - Female Genitourinary MDM Narrative Medical decision making narrative: patient presenting here with 1-2 months of vaginal plain /bleeding with concern for possible prolapse, on exam I do not see any obvious prolapse, however she does have a scant blood in the vault, she does already have follow-up with her OBGYN already, I did obtain a UA just to make sure she has no UTI and this is negative. test is negative. I do feel she is stable for discharge at this time with follow-up to her OBGYN. Return precautions discussed. Lab Data Labs: Lab Results 06/19/23 Range/Units 12:27 Urine Color Yellow (Yellow) Urine Appearance Clear (Clear) Urine pH 5.0 (5.0-9.0) Ur Specific [place] 1.008 (1.001-1.035) Urine Protein Negative (Negative) mg/dL Urine Glucose (UA) Negative (Negative) mg/dL Urine Ketones Negative (Negative) mg/dL Ur Blood (Man) 1+ H (Negative) Urine Nitrate Negative (Negative) Urine Bilirubin Negative (Negative) Urine Urobilinogen 0.2 (<2.0) mg/dL Leukocyte Esterase Rfl Negative (Negative) ROSELYN/UL Urine RBC 6-10 H (0-2) /hpf Urine WBC 0-5
== END 2023-06-19 13:37 | disposition home or self-care (01) ==
PROVIDERS: Emergency Provider Emergency Medicine; PCP Family Medicine
DX: N93.9 Abnormal uterine and vaginal bleeding, unspecified (principal); Z87.891 Personal history of nicotine dependence
CPT/HCPCS: 81025; 96372; 99283; A9270; J1885

== ENCOUNTER 2023-06-25 18:38 | Emergency (ER) | payer OTHER, SELFPAY ==
--- NOTE | ~2023-06-25 | CT_ITS ---
CT of the Abdomen and Pelvis: Indication: Abdominal pain Technique: 2.5 mm axial scans were obtained through the abdomen and pelvis following intravenous adm inistration of 100 cc of Omnipaque 350. Dose reduction technique was used on this scan by utilizing a utomated exposure control and iterative reconstruction technique. The dose-length product (DLP) was 3 94.46 mGy-cm. COMPARISON: 03/04/2020 Findings: Scans through the lung bases is minimal pleural fluid bilaterally. The liver, spleen, pancreas, gallbladder, adrenals and kidneys are within normal limits. No evidence of aortic aneurysm. No lymphadenopathy. No bowel obstruction or bowel wall thickening. There is no evidence to suggest acute appendicitis. Images through the pelvis were performed. Urinary bladder unremarkable. No adnexal mass seen. No asci ruth. Impression: Minimal pleural effusions, otherwise unremarkable exam. Reviewed, dictated and finalized at [facility]. Impression: Minimal pleural effusions, otherwise unremarkable exam.
[2023-06-25 18:48] VITALS: BP 127/80; PULSE 89; RESP 18; TEMP 36.4; O2SAT 100
[2023-06-25 22:48] LABS: Add Urine Microscopic? NO; Appearance Urine Clear (Clear); Bilirubin Urine Negative (Negative); Blood Urine Negative (Negative); Color Urine Yellow (Yellow); Glucose Urine UA Negative (Negative); Ketones Urine Negative (Negative); Leukocyte Esterase Ur Negative LEU/UL (Negative); Nitrate Urine Negative (Negative); Protein Urine Negative (Negative); Specific Grav Ur 1.009 (1.001-1.035); Urobilinogen Urine 0.2 mg/dL (<2.0)
--- NOTE | 2023-06-26 02:18 | ED.FEMALEGU ---
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 Patient states she has been having these issues for approximately 6 months, reporting urinary incontinence and feeling like something is falling out of her vagina. She has reported associated dyspareunia and intermittent vaginal bleeding. She is currently not having any bleeding. She has a history of uterine ablation many years ago. She is reporting associated right lower quadrant abdominal pain for the past 3-4 weeks and states I know something is wrong with me . Patient is very tearful. She was seen in our emergency department for similar complaints on 06/19/2023. She was advised to follow-up with her OBGYN. Patient states she is scheduled to see her OBGYN in 3 days. <Wanda Vargas PA-C - Last Filed: 06/26/23 03:00> Related Data Home medications: Home Medications Medication Instructions Recorded Confirmed clonazepam 1 mg tablet (Klonopin) 1 mg PO DAILY PRN Anxiety 03/04/20 05/29/23 rosuvastatin 40 mg tablet (Crestor) 40 mg PO DAILY 03/04/20 05/29/23 <Wanda Vargas PA-C - Last Filed: 06/26/23 03:00> Allergies/Adverse reactions: Allergies Allergy/AdvReac Type Severity Reaction Status Date / Time No Known Allergies Allergy Verified 05/29/23 15:33 <LENY Mejia Last Filed: 06/26/23 03:00> Review of Systems Review of Systems: CONSTITUTIONAL: Denies fever, chills, or sweats. EYES: Denies visual changes, redness, or discharge. ENT: Denies rhinorrhea, congestion, sore throat, or otalgia. CARDIOVASCULAR: Denies chest pain, palpitations, or edema. RESPIRATORY: Denies cough or dyspnea. GASTROINTESTINAL: See HPI GENITOURINARY: see HPI SKIN: Denies rash or itching. MUSCULOSKELETAL: Denies back pain, joint pain, or myalgia. NEUROLOGIC: Denies headache, numbness, or weakness. PSYCHIATRIC: Denies anxiety or depression. <Wanda Vargas PA-C - Last Filed: 06/26/23 03:00> [facility] Family History Family History: Family History Mother Hypertension <Wanda Vargas PA-C - Last Filed: 06/26/23 03:00> Social History Social History: Social History Smoking status: Former smoker Second hand tobacco smoke exposure: No Smoking end date: 04/06/08 Alcohol intake: never Substance use: never Substance use type: does not use Gender identity (if verbalized by the patient): Female Sexual Orientation (if Verbalized by the Patient): Straight or Heterosexual Spiritual care concerns: No <Wanda Vargas PA-C - Last Filed: 06/26/23 03:00> Exam Narrative: GENERAL: Well-appearing, well-nourished, and in no acute distress. Nontoxic appearing. Very tearful HEAD: Normocephalic, atraumatic. EYES: PERRLA and EOMI. ENT: Nares clear, no rhinorrhea or epistaxis. Mucous membranes moist. NECK: Supple. CHEST: Clear to auscultation. No respiratory distress. HEART: Regular rate and rhythm. No murmur heard. Normal peripheral pulses. ABDOMEN: normoactive bowel sounds. Abdomen soft with mild tenderness right lower quadrant. No rebound, guarding or rigidity. No CVA tenderness. : Normal external genitalia. Cervical os closed. No vaginal discharge or bleeding. No cervical motion tenderness, adnexal masses or tenderness. No evidence of prolapse EXTREMITIES: Normal range of motion. No edema. SKIN: Warm, dry, no rash. NEURO: No focal deficits. Alert and oriented x3 <Heather
[2023-06-26 02:22] LABS: Basophils Absolute Auto 0.1 K/mm3 (0.0-0.1); Basophils Percent Auto 0.7 % (0.2-1.2); Eosinophils Absolute Auto 0.2 K/mm3 (0-0.3); Eosinophils Percent Auto 2.4 % (0-4.4); Hematocrit 40.5 % (37.0-47.0); Hemoglobin 13.8 g/dL (12.0-15.0); Immature Granulocyte Absolute 0.01 K/mm3 (0.00-0.031); Immature Granulocyte Percent A 0.1 % (0-0.5); Lymphocytes Absolute Auto 2.56 K/mm3 (0.9-3.2); Lymphocytes Percent Auto 37.7 % (18.3-44.2); Mean Corpuscular HGB Conc 34.1 g/dl (32-36); Mean Corpuscular Hemoglobin 30.5 pg (26-34); Mean Corpuscular Volume 89.4 fl (80-100); Mean Platelet Volume 10.2 fl (7.4-10.4); Monocytes Absolute Auto 0.4 K/mm3 (0.1-0.6); Monocytes Percent Auto 6.3 % (2.6-8.5); Neutrophils Absolute Auto 3.6 K/mm3 (1.3-6.7); Neutrophils Percent Auto 52.8 % (45.5-73.1); Platelet Count Result 248 k/mm3 (150-375); Red Blood Count 4.53 M/mm3 (4.2-5.4); Red Cell Distribution Width 12.2 % (11.5-14.5); White Blood Count 6.8 K/mm3 (4.5-10.0)
[2023-06-26] MEDS: ACETAMINOPHEN 500 MG TABLET 1000 MG PO (02:24)
[2023-06-26] MEDS: SODIUM CHLORIDE 0.9% IV 1,000 ML 999 ML IV CONT (02:24)
[2023-06-26 02:34] LABS: Alanine Aminotransferase 12 U/L (6-35); Albumin Level 4.2 g/dL (3.5-5.1); Alkaline Phosphatase 39 U/L (38-126); Anion Gap 4 mmol/L (8-16); Aspartate Amino Transferase 23 U/L (14-36); Bilirubin,Total 1.9 mg/dL (0.2-1.3); Blood Urea Nitrogen 22 mg/dL (7-17); Calcium 9.2 mg/dL (8.4-10.2); Carbon Dioxide 29 mmol/L (22-30); Chloride 103 mmol/L (98-107); Estimated CRCL calculation 89 ml/min; Estimated Glomerular Filt Rate > 60; Glucose 83 mg/dL (65-110); Potassium 3.4 mmol/L (3.4-5.0); Sodium 136 mmol/L (137-145)
[2023-06-26 02:35] LABS: Lactic Acid Reflex 0.6 mmol/L (0.7-2.0)
[2023-06-26 04:18] VITALS: BP 118/68; PULSE 79; RESP 16; O2SAT 99
[2023-06-26 05:45] VITALS: BP 112/79; PULSE 87; RESP 18; O2SAT 100
== END 2023-06-26 05:47 | disposition home or self-care (01) ==
PROVIDERS: Physician Assistant; Emergency Provider Emergency Medicine; PCP Family Medicine
DX: N94.10 Unspecified dyspareunia (principal); R10.31 Right lower quadrant pain; Z87.891 Personal history of nicotine dependence
CPT/HCPCS: 36415; 74177; 80053; 81025; 83605; 85025; 96360; 99284; A9270; J7030; Q9967

== ENCOUNTER 2023-07-08 15:21 | Outpatient (CLI) | payer OTHER, SELFPAY ==
--- NOTE | ~2023-07-08 | US_ITS ---
EXAMINATION: US pelvic complete w TV DATE: 07/08/2023 17:02 INDICATION: Pelvic and perineal pain TECHNIQUE: Multiple transabdominal and endovaginal sonographic images of the pelvis were obtained. COMPARISON: None. FINDINGS: The uterus measures 7.2 x 4.4 x 4.6 cm. The endometrial complex measures 3-4 mm in thickness. There are couple small anechoic cystic lesions within the subendometrial uterus smaller measuring 4 mm and the larger measuring 13 x 10 x 8 mm . The right ovary measures 2.9 x 1.8 x 1.9 cm. The left ovary kings sures 3.8 x 2.0 x 2.8 cm. There are a few subcentimeter anechoic cysts/follicles at both ovaries. Vas cular flow with arterial and venous waveforms identified in both ovaries on color Doppler. There is a minimal amount of anechoic likely physiologic free fluid in the pelvis. IMPRESSION: 1. A couple small nonspecific cystic myometrial lesions the larger measuring 12 mm and the smaller 4 mm which may be related to reported prior D&C or endometrial ablation but which can also be seen in t he setting of adenomyosis. Reviewed, dictated and finalized at location A. IMPRESSION: 1. A couple small nonspecific cystic myometrial lesions the larger measuring 12 mm and the smaller 4 mm which may be related to reported prior D&C or endometr ial ablation but which can also be seen in the setting of adenomyosis.
== END 2023-07-08 15:22 | disposition home or self-care (01) ==
PROVIDERS: PCP Family Medicine; Visit Provider Obstetrics & Gynecology
DX: R10.2 Pelvic and perineal pain (principal); N93.9 Abnormal uterine and vaginal bleeding, unspecified
CPT/HCPCS: 76830; 76856

== ENCOUNTER 2023-08-18 17:05 | Emergency (ER) | payer OTHER, SELFPAY ==
--- NOTE | ~2023-08-18 | CT_ITS ---
EXAMINATION: CT lumbar spine wo con, CT pelvis wo con DATE: 08/18/2023 18:01 INDICATION: history of sacral fracture 3 weeks ago . TECHNIQUE: Computed tomography (CT) of the lumbar spine and pelvis was performed without intravenous contrast. Automated exposure control and iterative reconstruction technique were employed. The dose-l ength product was 306.41 mGy-cm. COMPARISON: CT abdomen pelvis 06/26/2023. FINDINGS: Lumbar spine: 5 nonrib-bearing lumbar-type vertebral bodies. T12 is a transitional element. 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 Pedicles intact. Normal vertebral body alignment. Exaggerated lumbar lordosis. Moderate disc space narrowing at L5-S1. Pelvis: Oblique, subacute fracture of the fifth sacral element, with very slight anterior angulation and displacement. The fracture line extends to the right S4-5 foramen which is not performed. No othe r fracture detected. The SI joints are intact and symmetric. Normal appendix. Normal bladder, uterus and bilateral ovaries. IMPRESSION: No acute fracture or traumatic malalignment in the lumbar spine. Oblique, subacute, minimally displaced and angulated fracture of the fifth sacral element that extend s to the nondeformed right S4-5 foramen. Correlate for associated neurologic symptoms. Reviewed, dictated and finalized at location K. IMPRESSION: No acute fracture or traumatic malalignment in the lumbar spine. Oblique, subacute, minimally displaced and angulated fracture of the fifth sacr al element that extends to the nondeformed right S4-5 foramen. Correlate for as sociated neurologic symptoms.
[2023-08-18 17:10] VITALS: BP 134/80; PULSE 74; RESP 19; TEMP 36.9; O2SAT 99
--- NOTE | 2023-08-18 17:30 | ED.BACK ---
HPI - Back Pain/Injury General Chief Complaint: Back Pain/Injury Stated Complaint: back pain Time Seen by Provider: 08/18/23 17:20 Source: patient Mode of arrival: ambulatory Limitations: no limitations History of Present Illness HPI Narrative: 48 years old white female had a fall out of a [place] 3 weeks ago [place] sacral fracture. . Patient reported that pain is getting worse and more swollen. I would like to have another x-ray to see how with progression of healing. Or if there is something else going on. Patient denies bowel dysfunction, bladder dysfunction, altered sensation, focal weakness, or saddle numbness, Patient drove herself to the emergency room History of vaginal prolapse, scheduled for surgery next week Related Data Home Medications Medication Instructions Recorded Confirmed clonazepam 1 mg tablet (Klonopin) 1 mg PO DAILY PRN Anxiety 03/04/20 08/18/23 escitalopram oxalate 20 mg tablet 20 mg PO DAILY 06/30/23 08/18/23 (Lexapro) semaglutide (weight loss) 0.25 0.25 mg subcut WEEKLY 06/30/23 08/18/23 mg/0.5 mL subcutaneous pen injector (Wegovy) Allergies Allergy/AdvReac Type Severity Reaction Status Date / Time scopopalimine Allergy Rash Uncoded 06/30/23 11:02 [facility] Past Medical History Medical History (Updated 08/18/23 @ 18:40 by Daquan Matias MD) Abnormal uterine bleeding Anxiety Heart attack Pelvic pain Surgical History Surgical History (Updated 06/30/23 @ 11:08 by Tammie Jimenez) H/O dilation and curettage H/O nasal polypectomy History of endometrial ablation History of removal of ovarian cyst Family History Family History (Updated 06/30/23 @ 11:09 by Tammie Jimenez) Mother Hypertension Squamous cell carcinoma Father Heart disease Hyperlipidemia Sibling Hypertension Depression Anxiety Social History Social History (Updated 06/30/23 @ 11:10 by Tammie Jimenez) Smoking status: Former smoker Second hand tobacco smoke exposure: No Smoking end date: 04/06/08 Alcohol intake: never Substance use: never Substance use type: does not use Do You Feel Safe in your Home?: Yes Lack of Transportation: No Lack of Food: Never True Current Housing: I Have Housing Concerned About Future Housing: No Difficulty Paying Gas/Electric Bills: No Difficulty Paying for Meds: No Currently Unemployed: YES Education: Bachelor's Degree Difficulty w/ Childcare or Family Care: No Gender identity (if verbalized by the patient): Female Sexual Orientation (if Verbalized by the Patient): Straight or Heterosexual Spiritual care concerns: No Exam Narrative: General appearance: Well-developed, well-nourished Skin: Normal color Head: Normocephalic, nontraumatic Eyes: Clear conjunctiva ENT: Oropharynx normal, ears normal, nose normal Neck: Supple, nontender Chest and respiratory: Airway patent, no respiratory distress, no accessory muscle use Heart: Regular rate/rhythm Abdomen: Soft, nontender, no organomegaly, quiet bowel sounds Vascular: Normal peripheral pulses, normal capillary refill. Musculoskeletal: limited range of motion at the lumbar area, diffuse tenderness across the sacral area, no bruises, no rash or deformity. 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
--- NOTE | 2023-08-18 17:44 | PC.NURSE ---
patient being transported to [facility] via wheel chair
--- NOTE | 2023-08-18 17:57 | PC.NURSE ---
patient returned to room from xray
--- NOTE | 2023-08-18 18:25 | PC.NURSE ---
ER provider at the bedside
[2023-08-18] MEDS: HYDROmorphone HCL INJ (*CRX) 2 MG/ML VIAL 1 MG IM (18:41)
[2023-08-18] MEDS: ONDANSETRON HCL ODT 4 MG TABLET PO (18:42)
[2023-08-18 18:53] VITALS: BP 119/67; PULSE 86; RESP 18; O2SAT 97
== END 2023-08-18 18:54 | disposition home or self-care (01) ==
PROVIDERS: Emergency Provider Emergency Medicine; PCP Family Medicine
DX: S32.10XD Unspecified fracture of sacrum, subsequent encounter for fracture with routine healing (principal); W17.89XD Other fall from one level to another, subsequent encounter; F41.9 Anxiety disorder, unspecified; I25.2 Old myocardial infarction; Z87.891 Personal history of nicotine dependence; Z79.85 Long-term (current) use of injectable non-insulin antidiabetic drugs
CPT/HCPCS: 72131; 72192; 96372; 99284; A9270; J1170

== ENCOUNTER 2023-09-12 22:55 | Emergency (ER) | payer OTHER, SELFPAY ==
--- NOTE | ~2023-09-12 | CT_ITS ---
EXAMINATION: CT abdomen pelvis w con DATE: 09/13/2023 00:50 INDICATION: Status post urologic surgery. Pelvic pain with dysuria and hematuria. TECHNIQUE: Computed tomography (CT) of the abdomen and pelvis was performed with 100 cc Omnipaque 350 intravenous contrast. The dose-length product was 394.71 mGy-cm. Automated exposure control and iter ative reconstruction technique were employed. COMPARISON: CT dated 08/18/2023. FINDINGS: There is dependent atelectasis. Trace pleural effusions. Heart size normal. The liver, sple en, pancreas, adrenal glands and kidneys are unremarkable. Gallbladder is present. Nonobstructive bow el gas pattern. No significant vascular abnormality. Mann catheter present in the bladder. Gas in th e bladder is present, consistent with recent instrumentation. Small amount of free air in the abdomen , consistent with recent surgery. Trace free fluid in the pelvis. No acute osseous abnormality. IMPRESSION: 1. Small amount of free intraperitoneal air, consistent with recent surgery. 2: Trace pleural effusions. Reviewed, dictated and finalized at location B.
--- NOTE | 2023-09-12 23:01 | ED.GENADULT ---
HPI - General Adult General Chief complaint: Urogenital-Female Stated complaint: post op complications Time Seen by Provider: 09/12/23 22:58 History of Present Illness HPI narrative: Nikki is a 48F with a PMH of HTN, anxiety, recent non-displaced sacral fracture and recent hysterectomy w/ bladder lift 2 weeks ago that presented to clinic with pelvic pain, decreased urinary output and foul smelling urine and nausea but no vomiting. Her home [place] is not touching the pain. No fevers, chills, CP, flank pain or dyspnea. Related Data Home Medications Medication Instructions Recorded Confirmed clonazepam 1 mg tablet (Klonopin) 1 mg PO DAILY PRN Anxiety 03/04/20 09/12/23 escitalopram oxalate 20 mg tablet 20 mg PO DAILY 06/30/23 09/12/23 (Lexapro) semaglutide (weight loss) 0.25 0.25 mg subcut WEEKLY 06/30/23 09/12/23 mg/0.5 mL subcutaneous pen injector (Wegovy) cyclobenzaprine 5 mg tablet 5 mg PO TID 09/12/23 09/12/23 hydrocodone 5 mg-acetaminophen 325 1 tablet PO PRN PRN Pain 09/12/23 09/12/23 mg tablet Allergies Allergy/AdvReac Type Severity Reaction Status Date / Time scopopalimine Allergy Rash Uncoded 06/30/23 11:02 Review of Systems Review of Systems: All systems reviewed & are unremarkable except as noted in HPI and below PMFSH Past Medical History Medical History Abnormal uterine bleeding Anxiety Heart attack Pelvic pain Surgical History Surgical History H/O dilation and curettage H/O nasal polypectomy History of endometrial ablation History of removal of ovarian cyst Family History Family History Mother Hypertension Squamous cell carcinoma Father Heart disease Hyperlipidemia Sibling Hypertension Depression Anxiety Social History Social History Smoking status: Former smoker Second hand tobacco smoke exposure: No Smoking end date: 04/06/08 Alcohol intake: never Substance use: never Substance use type: does not use Do You Feel Safe in your Home?: Yes Lack of Transportation: No Lack of Food: Never True Current Housing: I Have Housing Concerned About Future Housing: No Difficulty Paying Gas/Electric Bills: No Difficulty Paying for Meds: No Currently Unemployed: YES Education: Bachelor's Degree Difficulty w/ Childcare or Family Care: No Gender identity (if verbalized by the patient): Female Sexual Orientation (if Verbalized by the Patient): Straight or Heterosexual Spiritual care concerns: No Exam Const: General: cooperative, healthy appearing, comfortable, no acute distress, well developed, alert, awake and Physically active Orientation/consciousness: oriented to person, oriented to place and oriented to time Other: Holding lower abdomen in pain HENMT: Head: normal to inspection, normocephalic and atraumatic Ears: hearing grossly normal bilaterally and external ears normal Face/Nose/Sinus: Normal external nose present Eyes: General: appearance normal, both eyes and all related structures Periorbital: periorbital findings normal Sclera: sclerae normal Pupils: Equal, round and reactive pupils present Neck: Neck: normal visual inspection Chest: Chest palpation & inspection: normal inspection of the chest Resp: Effort & Inspection: normal respiratory effort, able to speak in complete sentences and no respiratory distress Auscultation: clear to auscultation bilaterally Cardio: Jugular venous distension: no JVD Rate: regular rate Rhythm: regular rhythm GI: Inspection: normal to inspection GI Palp: Yes Soft to palpation Auscultation: normal bowel sounds : Other: TTP in the suprapubic region. Skin: General skin exam: normal color and no rashes or lesions noted Neuro: General: oriented to perso
[2023-09-12 23:04] VITALS: BP 117/75; PULSE 77; RESP 18; TEMP 36.2; O2SAT 100
[2023-09-12] MEDS: MORPHINE SULFATE (*CRX) 4 MG/ML INJ IV PUSH (23:24)
[2023-09-12] MEDS: ONDANSETRON INJ 4 MG/2 ML VIAL IV PUSH (23:26)
[2023-09-12] MEDS: SODIUM CHLORIDE 0.9% IV 1,000 ML 999 ML IV CONT (23:27)
[2023-09-12] MEDS: oxyBUTYnin CHLORIDE 5 MG TABLET PO (23:35)
[2023-09-12 23:41] LABS: Basophils Absolute Auto 0.05 K/mm3 (0.00-0.10); Basophils Percent Auto 0.6 % (0.0-1.0); Eosinophils Percent Auto 2.6 % (1.0-6.0); Hematocrit 36.9 % (35.0-49.0); Hemoglobin 12.1 g/dL (12.0-15.0); Immature Granulocyte Absolute 0.01 K/mm3 (0.00-0.00); Immature Granulocyte Percent A 0.1 % (0.0-0.0); Lymphocytes Absolute Auto 3.03 K/mm3 (1.10-4.50); Mean Corpuscular HGB Conc 32.8 g/dL (32-36); Mean Corpuscular Volume 91.6 fL (78.0-102.0); Mean Platelet Volume 9.5 fl (9.2-11.8); Monocytes Absolute Auto 0.43 K/mm3 (0.10-0.90); Monocytes Percent Auto 5.5 % (2.0-11.0); Neutrophils Absolute Auto 4.05 K/mm3 (1.70-7.20); Neutrophils Percent Auto 52.2 % (50.0-70.0); Platelet Count Result 264 K/mm3 (150-420); Red Blood Count 4.03 M/mm3 (4.20-5.40); Red Cell Distribution Width 12.2 % (11.6-14.4); White Blood Count 7.8 K/mm3 (4.8-10.8)
[2023-09-12 23:43] LABS: Bilirubin Urine Negative (Negative); Blood Urine 1+ (Negative); Color Urine Yellow (Yellow); Glucose Urine UA Negative (Negative); Ketones Urine Negative (Negative); Leukocyte Esterase Ur 1+ (Negative); Nitrate Urine Negative (Negative); Protein Urine Negative (Negative); Specific Grav Ur 1.015 (1.010-1.020); pH Urine 7.5 (5.0-8.0)
[2023-09-12 23:57] LABS: Alanine Aminotransferase 23 U/L (14-59); Albumin Level 3.3 g/dL (3.4-5.0); Alkaline Phosphatase 45 U/L (46-116); Anion Gap 7 mmol/L (4-12); Aspartate Amino Transferase 17 U/L (15-37); Bilirubin,Total 0.7 mg/dL (0.00-1.00); Blood Urea Nitrogen 15 mg/dL (7-18); Calcium 8.1 mg/dL (8.5-10.1); Carbon Dioxide 29 mmol/L (21-32); Chloride 103 mmol/L (98-108); Estimated CRCL calculation 74 ml/min; Estimated Glomerular Filt Rate > 60; Glucose 115 mg/dL (70-99); Osmolality Calculated 289 mOsm/kg (285-295); Potassium 3.8 mmol/L (3.5-5.1); Sodium 139 mmol/L (136-145)
--- NOTE | 2023-09-12 23:58 | PC.NURSE ---
Pt still having pain and asking for another dose of pain meds before inserting daly cath. She states her urethra was tightened and is very painful. ERP gave order for more Morphine before inserting catheter.
[2023-09-13 00:01] LABS: Add Urine Microscopic? YES; Amorphous Sediment Urine Few; Appearance Urine Sl Cloudy (Clear); Bacteria Urine 1+ /hpf; Squamous Epithelial Cell Urine Few /hpf (Few)
[2023-09-13] MEDS: MORPHINE SULFATE (*CRX) 2 MG/ML INJ IV PUSH ×2 (00:01→03:24)
[2023-09-13 00:02] LABS: Mucus Urine Few /lpf
--- NOTE | 2023-09-13 00:15 | PC.NURSE ---
Pt resting and talking w/ family. Mann cath draining and patent, noted urine clear. Pt will have CT scan as per ERP order.
[2023-09-13 00:50] VITALS: BP 115/74; PULSE 70; RESP 18; O2SAT 100
--- NOTE | 2023-09-13 01:10 | PC.NURSE ---
Pt resting, reports pain is somewhat better. Still awaiting CT results. Call lyles at side.
[2023-09-13 02:08] VITALS: BP 99/64; PULSE 67; RESP 18; O2SAT 100
--- NOTE | 2023-09-13 02:08 | PC.NURSE ---
Pt resting, family remains in room, VSS. Pt reports feeling some better, daly cath patent and draining. Awaiting CT scan report results.
--- NOTE | 2023-09-13 03:20 | PC.NURSE ---
Awaiting call back fro Dr Petersen, urology oncall at [place]. Pt resting, VSS, daly patent and draining. Pt continues to have pain. Order obtained for pain med.
--- NOTE | 2023-09-13 04:10 | PC.NURSE ---
Mann cath repositioned and advanced as per CT report, pt resting, awaiting call back from hospitalist at [place] for transfer.
[2023-09-13 04:12] VITALS: BP 110/68; PULSE 74; RESP 18; O2SAT 98
--- NOTE | 2023-09-13 05:22 | PC.NURSE ---
Dr Brannon spoke w/ Dr Sales, he denied transfer and stated pt needs to go back to [facility] where pt had original surgery. Call placed through [facility] transfer line center for urology at [facility].
[2023-09-13 05:26] VITALS: BP 103/57; PULSE 68; RESP 18; TEMP 36.4; O2SAT 99
--- NOTE | 2023-09-13 05:56 | PC.NURSE ---
Pt resting, [facility] POC to try to admit and transfer to ER at [facility] for pt eval w/ a surgeon. Will await call back from for transfer.
--- NOTE | 2023-09-13 06:10 | PC.NURSE ---
Paperwork signed for pt transfer.
--- NOTE | 2023-09-13 06:30 | PC.NURSE ---
Report given to Sonya Chau at [facility]. Call placed to [facility] for pt transfer.
[2023-09-13] MEDS: MORPHINE SULFATE (*CRX) 4 MG/ML INJ IV PUSH (06:53)
[2023-09-13 06:55] VITALS: BP 117/85; PULSE 74; RESP 20; TEMP 36.6; O2SAT 100
--- NOTE | 2023-09-15 13:08 | PC.NURSE ---
FINAL URINE CULTURE RESULTS: ISOLATE 1: MIXED GENITAL KERRIE. NO TX NEEDED PER DR PAUL
== END 2023-09-13 06:55 | disposition short-term general hospital (02) ==
PROVIDERS: Emergency Provider Family Medicine; PCP Family Medicine
DX: K66.8 Other specified disorders of peritoneum (principal); R10.2 Pelvic and perineal pain; I10 Essential (primary) hypertension; F41.9 Anxiety disorder, unspecified; I25.2 Old myocardial infarction; Z87.891 Personal history of nicotine dependence; Z79.899 Other long term (current) drug therapy; Z79.891 Long term (current) use of opiate analgesic
CPT/HCPCS: 36415; 74177; 80053; 81001; 85025; 87086; 87088; 96361; 96365; 96374; 96375; 96376; 99285; A9270; J0696; J2270; J2405; J7030; Q9967

== ENCOUNTER 2024-05-24 18:27 | Emergency (ER) | payer OTHER, SELFPAY ==
[2024-05-24] VITALS (13 sets, daily range): BP systolic 94–115; BP diastolic 61–82; PULSE 55–76; RESP 10–19; TEMP 36.7; O2SAT 94–100
--- NOTE | ~2024-05-24 | XR_ITS ---
EXAMINATION: XR chest 1V portable Exam Date/Time: 05/24/2024 18:42 FOUNDING PARTNER HISTORY: chest pain Comparison: 05/29/2023. RESULT: Lines, tubes, and devices: None. Lungs and pleura: Clear. Cardiomediastinal silhouette: Stable. Other: No acute osseous or upper abdominal finding. IMPRESSION: No acute cardiopulmonary process. Reviewed, dictated and finalized at location [facility] [employer]
--- OUTSIDE RECORDS SUMMARY | 2024-05-24 18:29 | XMS_ITS | Encounter Summary ---
Author Organization [facility] Address [facility] [place] [address] Care Team Providers Care Check Writing Machine Operator Name Role Phone Dale Ball MD Unavailable [phone] Trinh Ceja MD Unavailable Hiwot Telles MD Primary Care Provider Encounter Details Date Type Department Care Team (Late st Contact Info) Description 05/13/2022 [employer] [facility] Patient Accounts [address] [place] [address] [facility] Provider Monthly Credit Card Payment Social History Tobacco Use Types Packs/Day Years Used Date Smoking Tobacco: Former Cigarettes Smokeless Tobacco: Never Comments:quit 13yrs ago Alcohol Use Standard Drinks/Week Comments Not Currently 0 (1 standard drink = 0.6 oz pur e alcohol) Comments No Sex and Gender Information Value Date Recorded Sex Assigned at Not on file Legal Sex Female 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 Gender Identity Not on file Sexual Orientation Not on file documented as of this encounter Plan of Treatment Not on file documented as of this encounter Visit Diagnoses Not on filedocumented in this encounter Additional Health Concerns Infection Onset Date Last Indicated Resolved Time COVID-19 Rule Out 11/13/2022 11/13/2022 11/13/2022 8:55 PM CDT COVID-19 Confirmed 11/13/2022 11/13/2022 1:42 PM CDT documented as of this encounter Care Teams Check Writing Machine Operator Relationship Specialty [place] [address], [address] [place] [address] PCP - General FAMILY PRACTICE 12/18/21 Dale Ball MD [address] [place] [address] Consulting Physician INTERNAL MEDICINE 04/26/20 Trinh Ceja MD [address] [place], [place] [id number] Consulting Physician CARDIOVASCULAR DISEASE 04/26/20 documented as of this encounter
--- OUTSIDE RECORDS SUMMARY | 2024-05-24 18:29 | XMS_ITS | Encounter Summary ---
Author Organization [facility] Address [address] [place] [address] Care Team Providers Care Hose Suspender Cutter Name Role Phone Hiwot Telles MD Primary Care Provider [phone] Encounter Details Date Type Department Care Team (Late st Contact Info) Description 12/10/2021 Abstract [facility] [place] [address] [place] [address] Floridalma Mandel MD [address] [place] [address] Social History Tobacco Use Types Packs/Day Years Used Date Smoking Tobacco: Former Cigarettes 2 15 0 06/04/1992 - 06/05/2007 Smokeless Tobacco: Never Alcohol Use Standard Drinks/Week Comments Never 0 (1 standard drink = 0.6 oz pur e alcohol) Comments No Sex and Gender Information Value Date Recorded Sex Assigned at Not on file Legal Sex Female 7:30 AM CDT Gender Identity Not on file Sexual Orientation Not on file 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 No / Unsure 11/25/2021 9:37 AM CDT documented as of this encounter Plan of Treatment Not on file documented as of this encounter Visit Diagnoses Not on filedocumented in this encounter Care Teams Hose Suspender Cutter Relationship Specialty Start Date End Date Hiwot Telles MD [address] [place] [address] PCP - General Family Practice 11/25/21 documented as of this encounter
--- OUTSIDE RECORDS SUMMARY | 2024-05-24 18:29 | XMS_ITS | Clinical Summary ---
Author Organization [facility] [address] Address [address] [place] [address] Care Team Providers Care Climate Change Risk Assessor Name Role Phone Megan Castro MD Primary Care Provider Allergies Active Allergy Reactions Criticality Noted Date Comments Scopolamine Hives,Itching,Swelli ng,Vision changes,Rash High 05/10/2022 Medications cyclobenzaprine (FLEXERIL) 10 mg tablet Take 1 tablet (10 mg total) by mouth 2 (two) times a day as needed Active clonazePAM (KlonoPIN) 1 mg tablet Take 1 tablet (1 mg total) by mouth nightly 07/27/19 Active ondansetron ODT (ZOFRAN-ODT) 4 mg disintegrating tablet Take 1 tablet (4 mg total) by mouth every 8 (eight) hours as needed 08/06/19 Active Wegovy 2.4 mg/0.75 mL auto-injectorIndic ations:Weight Loss Management for Obese Patient (BMI >= 30) Inject 0.75 mL (2.4 mg total) under the skin every 7 days Patient takes on Fridays. As of 08/21/23, patient will take her dose today Active escitalopram (LEXAPRO) 20 mg tablet Take 1 tablet (20 mg total) by mouth nightly 07/27/19 Active ibuprofen 200 mg tab/capIndications :Anti-inflammatory ,hold 48 hours Take 3 tablet/capsule (600 mg total) by mouth every 6 (six) hours as needed for pain Active senna-docusate (PERICOLACE) 8.6-50 mg Take 1 tablet by mouth 2 (two) times a day Active naloxone (NARCAN) 4 mg/actuation spray,non-aerosol Administer 1 spray into affected nostril(s) as needed for opioid reversal or respiratory depression Call 911. Administer a single spray in one nostril. Repeat every 3 minutes as needed if no or minimal response. 1 each 09/09/19 24 Active HYDROcodone-acetam inophen (NORCO) 5-325 mg per tabletIndications: Pain Take 1 tablet by mouth every 6 (six) hours as needed for pain 6 tablet 09/13/19 24 Active Active Problems Problem Noted Date Diagnosed Date Acute post-operative pain 09/14/2023 Uterine prolapse 09/01/2023 Pelvic prolapse 08/07/2023 Uterovaginal prolapse 08/04/2023 Assessment & Plan (08/07/2023 12:22 PM CDT): -patient presents for preoperative consultation for surgery September 01, 2023. She does suffer from pelvic organ prolapse. -discussed a procedure as a robotic laparoscopic supracervical hysterectomy with bilateral salpingectomy per myself and sacral colpopexy and perhaps other procedures per Dr. Sam Palacio. We discussed indications risks and postop recovery. Patient wishes to retain her ovaries. Pros and cons were discussed regarding ovarian retention. -the patient wishes to continue light duty. We discussed she will likely be able to return to light duty sit-down job within a week to 2 weeks after surgery which is her preference. Do not recommend lifting pulling pushing beyond 15 or 20 lb. -patient agrees and wishes to proceed. 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 Risks such as postoperative seroma have been discussed. We have also discussed time needed off of work. All questions answered. Pre-admission testing will be sent in. Consent to be obtained. Surgical History Surgery Date Site/Laterality Comments DILATION AND CURETTAGE OF UTERUS x2 OVARIAN CYST REMOVAL ENDOMETRIAL ABLATION Medical History Medical History Date Comments Hypertension Anxiety and depression Hyperlipidemia Uterovaginal prolapse Midline cystocele Stress incontinence due to pelvic organ prolapse Sacral fracture (CMS/HCC) (HCC) recent PONV (postoperative nausea and vomiting) Sacral fracture (CMS/HCC) (HCC) s3-s4 Family History Medical History Relation Name Comments Hypertension Mother Relation Name Status Comments Father Mother Social History Tobacco Use Types Packs/Day Years Used Date Smoking Tobacco: Former Cigarettes Q uit: 03/09/2006 Smokeless Tobacco: Never Tobacco Cessation:Counseling Given: Not Answered AUDIT-C Answer Date Recorded Q1: How often do you have a drink containing alcohol? Never 08/21/2023 Q2: How many drinks containi ng alcohol do you have on a typical day when you are drinking? Patient does not drink Frequency of Binge Drinking Not on file 08/04 Personal Safety Answer Date Recorded Have you ever been in or are you currently in a harmful physical or emotional relationship or is someone making you feel afraid or unsafe? Denies 09/13/2023 Comments No Sex and Gender Information Value Date Recorded Sex Assigned at Not on file Legal Sex Female 3:22 AM INVESTIGATION DIVISION LIEUTENANT Gender Identity Not on file Sexual Orientation Not on file Obstetrics History Last Filed Vital Signs Vital Sign Reading Time Taken Comments Blood Pressure 93/59 09/13/2023 2:00 PM CDT Pulse 55 09/13/2023 2:00 PM CDT Temperature 36.7 C (98 F) 09/13/2023 7:51 AM CDT Respiratory Rate 16 09/13/2023 2:00 PM CDT Oxygen Saturation 97% 09/13/2023 2:00 PM CDT Inhaled Oxygen Concentration - - Weight 71.7 kg (158 lb) 09/13/2023 7:51 AM CDT Height 165.1 cm (5' 5 ) 09/01/2023 7:06 AM CDT Body Mass Index 26.29 09/01/2023 7:06 AM CDT Plan of Treatment Health Maintenance Due Date Last Done Comments Cervical Cancer Screening 1976 Colon Cancer Screening-Colonoscopy 1976 Depression Screening 1976 Hepatitis C Screening 1976 Hepatitis B Screening 1994 Regular Well Visit/Exam 18-64 1994 Breast Cancer Screening-Mammogram 11/24/2020 11/25/2019 Covid-19 Vaccine (2 - 2023-2 5 season) 2023 09/11/2020 Influenza Vaccine (#1) 2023 04/06/2018 DTaP/Tdap/Td Vaccine (4 - Td or Tdap) 09/25/2031 09/24/2021, 04/06/2018, 12/28/2009 Pneumococcal vaccine <65 Aged Out No longer eligible based on patient's age to complete this topic Medical Devices Implanted Type Area Roller Mechanic Device Identifier Shelf Expiration Date Model / Serial / Lot [employer] Kristen Upsylon 35.4cm Elongation Profile Lightweight Large Pore Low [id number] - [id number] Implanted:Qty: 1 on 09/01/2023 by Sam Palacio MD at [facility] N/A: Pelvis [employer] Kristen 06/03/2026 [id number] / / [id number] [employer] Sling Urinary Incontinence Female Stress Short Desara Blue Sindy-Ds01bs - [id number] Implanted:Qty: 1 on 09/01/2023 by Sam Palacio MD at [facility] N/A: Pelvis [employer] 12/25/2025 [id number] / / [id number] Insurance IVANNA ROA Advance Directives For more information, please contact: [phone] * Full Code (Latest Code Status on File) Date Activated Date Inactivated Comments 09/01/2023 12:13 PM 09/02/2023 3:35 PM Care Teams Climate Change Risk Assessor Relationship Specialty Start Date End Date Megan Castro MD [address] [place] [address] PCP - General Family Medicine 09/01/23
--- OUTSIDE RECORDS SUMMARY | 2024-05-24 18:29 | XMS_ITS | Referral Summary ---
Author Organization [facility] [address] Address [address] [place] [id number] Care Team Providers Care Sanitation Worker Cleaning Equipment Name Role Phone Megan Castro MD Primary [...] 04/03/2022 Assessment & Plan (04/03/2022 9:25 AM ICT BUSINESS ANALYST): Given the increasing size and worsening symptoms we will set her up for excision of the lesion. Risks such as postoperative seroma have been discussed. We have also discussed time needed off of work. All questions answered. Pre-admission testing will be sent in. Consent to be obtained. Social History Tobacco Use Types Packs/Day Years [...] on file Legal Sex Female 3:22 AM ICT BUSINESS ANALYST Gender Identity Not on file Sexual Orientation Not on file Last Filed Vital Signs Vital Sign Reading [...] 09/01/2023 7:06 AM CDT Plan of Treatment Not on file Medical Devices Implanted Type Area Visitor Services Specialist Device Identifier Shelf Expiration Date Model / Serial / Lot [employer] Kristen Upsylon 35.4cm Elongation Profile Lightweight Large Pore Low [id number] - [id number] Implanted:Qty: 1 on 09/01/2023 by Sam Palacio MD at [facility] N/A: Pelvis [employer] Kristen 06/03/2026 [id number] / / [id number] [facility] [employer] Sling Urinary Incontinence Female Stress Short Desara Blue Sindy-Ds01bs - [id number] Implanted:Qty: 1 on 09/01/2023 by Sam Palacio MD at [facility] N/A: Pelvis [employer] 12/25/2025 [id number] / / [id number] Insurance CIGNA ALLEGIANCE CIGNA ALLEGIANCE CIGNA ALLEGIANCE Advance Directives For more information, please contact: [phone] * Full Code (Latest Code Status on File) Date Activated Date Inactivated Comments 09/01/2023 12:13 PM 09/02/2023 3:35 PM Care Teams Sanitation Worker Cleaning Equipment Relationship Specialty Start Date End Date Megan Castro MD [address] [place] [address] PCP - General Family Medicine 09/01/23
--- OUTSIDE RECORDS SUMMARY | 2024-05-24 18:29 | XMS_ITS | Encounter Summary ---
Author Organization [facility] Address [address] [place] [address] Care Team Providers Care Roofer Vinyl Coating Name Role Phone Hiwot Telles MD Primary Care Provider [phone] Encounter Details Date Type Department Care Team (Late st Contact Info) Description 12/10/2021 Abstract [facility] Surgical Spec [place] [address] [place] [address] Floridalma Mandel MD [address] [place] [address] Social History Tobacco Use Types [...] on filedocumented in this encounter Care Teams Roofer Vinyl Coating Relationship Specialty Start Date End Date Hiwot Telles MD [address] [place] [address] PCP - General Family Practice 11/25/21 documented as of this encounter
--- OUTSIDE RECORDS SUMMARY | 2024-05-24 18:29 | XMS_ITS | Clinical Summary ---
Author Organization [facility] Address [address] [place] [address] Care Team Providers Care Senior Mobile Developer Name Role Phone Dale Ball MD Unavailable [phone] Trinh Ceja MD Unavailable Hiwot Telles MD Primary Care Provider [phone] Allergies Active Allergy Reactions Criticality Noted Date Comments Scopolamine Blurred vision,Swelling,Itching,Rash High 05/10/2022 Medications clonazePAM 1 MG tablet Take 1 tablet by mouth daily as needed. 04/10/2020 Active escitalopram (LEXAPRO) 20 MG tablet Take 1 tablet (20 mg total) by mouth daily. 10/20/2022 Active semaglutide-weig ht management (WEGOVY) 2.4 mg/dose injection (PEN) Inject 2.4 mg into the skin once a week. Active ondansetron (ZOFRAN) 4 MG tablet Take 1 tablet (4 mg total) by mouth every 8 (eight) hours as needed for Nausea. 20 tablet 02/19/2023 Active Active Problems Problem Noted Date Diagnosed Date Essential hypertension 05/01/2020 Mixed hyperlipidemia 05/01/2020 Severe obesity (BMI 35.0-39. 9) with comorbidity (CMS/HCC HHS/HCC) 01/13/2020 Family History Medical History Relation Comments High Cholesterol Brother Hypertension Brother Heart Disease Father Hyperlipidemia Father Cancer Maternal Grandfather High Cholesterol Maternal Grandmother Hypertension Maternal Grandmother Hypertension Mother Cancer Paternal Grandfather Alzheimers Paternal Grandmother High Cholesterol Paternal Grandmother Hypertension Paternal Grandmother Relation Status Comments Brother Father Alive Maternal Grandfather Maternal Grandmother Mother Alive Paternal Grandfather Paternal Grandmother Social History Tobacco Use Types Packs/Day Years Used Date Smoking Tobacco: Former Cigarettes Smokeless Tobacco: Never Comments:quit 13yrs ago Alcohol Use Standard Drinks/Week Comments Not Currently 0 (1 standard drink = 0.6 oz pur e alcohol) Comments No Sex and Gender Information Value Date Recorded Sex Assigned at Not on file Legal Sex Female 5:55 PM BIOMEDICAL 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 PROFESSOR Gender Identity Not on file Sexual Orientation Not on file Last Filed Vital Signs Vital Sign Reading Time Taken Comments Blood Pressure 116/67 02/22/2023 10:30 PM BIOMEDICAL ENGINEERING PROFESSOR Pulse 69 02/22/2023 11:45 PM BIOMEDICAL ENGINEERING PROFESSOR Temperature 35.7 C (96.3 F) 02/22/2023 8:50 PM BIOMEDICAL ENGINEERING PROFESSOR Respiratory Rate 15 02/22/2023 10:00 PM BIOMEDICAL ENGINEERING PROFESSOR Oxygen Saturation 96% 02/22/2023 11:45 PM BIOMEDICAL ENGINEERING PROFESSOR Inhaled Oxygen Concentration - - Weight 78.9 kg (174 lb) 02/22/2023 8:50 PM BIOMEDICAL ENGINEERING PROFESSOR Height 165.1 cm (5' 5 ) 02/22/2023 8:50 PM BIOMEDICAL ENGINEERING PROFESSOR Body Mass Index 28.96 02/22/2023 8:50 PM BIOMEDICAL ENGINEERING PROFESSOR Plan of Treatment Health Maintenance Due Date Last Done Comments Cervical Cancer Screening Pa p Smear (Age 30 to 64) Every 3 Years 1976 Colorectal Cancer Screening Colonoscopy (10 Years) 1976 Annual Physical 1979 Hepatitis C 1994 DTaP, Tdap and Td Vaccines ( 1 - Tdap) 1995 Hepatitis B Vaccines (1 of 3 - 19+ 3-dose series) 1995 Cervical Cancer Screening Pa p with HPV Testing (Age 30 to 64) Every 5 Years 2006 Cervical Cancer Screening with HPV 2006 Mammogram Screening 11/24/2021 11/25/2019 COVID-19 Vaccine (2023-2 5 season) 2023 Influenza Adult (#1) 2024 Meningococcal B Vaccine Aged Out No l onger eligible based on patient's age to complete this topic Meningococcal Vaccine Aged Out No bob indira eligible based on patient's age to complete this topic Pneumococcal Vaccine: Pediat rics (0 to 5 Years) and At-Risk Patients (6 to 64 Years) Aged Out No longer eligi ble based on patient's age to complete this topic RSV Immunizations Under 20 Months Aged Out No longer eligible based on patient's age to complete this topic Procedures Procedure Name Priority Date/Time Associated Diagnosis Comments MG SCREENING W BRIAN CHUCK DIGI Routine 11/25/2019 9:28 AM CDT Visit for screening mammogram from Last 3 Months or Most Recently Relevant to Health Maintenance Results * MG SCREENING W BRIAN CHUCK DIGI (11/25/2019 9:28 AM CDT) Anatomical Region Laterality Modality Breast Bilateral Mammography 11/25/2019 5:14 PM CDT Impressions 11/25/2019 5:15 PM CDT IMPRESSION: No suspicious change since 09/23/2017. Recommendation: 1: Routine screening mammogram Bilateral in 1 Year Assessment: ACR BI-RADS Category 2 - Benign. Interpreted By: Kevin Vora MD, 11/25/2019 5:14 PM Narrative 11/25/2019 5:15 PM CDT Examination: Digital screening mammogram with CAD. Clinical history: Asymptomatic patient presents for routine screening. Comparison: 09/23/2017. Technique: Bilateral digital mammograms. The exam was interpreted with the use of a computer-aided detection (CAD) system. Additional 3-D tomosynthesis images were acquired. Tissue density: The breast tissue contains scattered fibroglandular densities. Findings: The breast tissue contains scattered fibroglandular densities. Benign-appearing calcification noted. There has been interval biopsy of nodular opacities in the lateral aspect of the left breast and the medial aspect of the right breast with tissue markers in place. No suspicious mass, microcalcification or area of architectural distortion can be identified. From a mammographic standpoint, routine followup in one year would seem adequate. Yoana Rolle SEEING EYE DOG TRAINER MAMMO Final Re sult from Last 3 Months or Most Recently Relevant to Health Maintenance Insurance [employer] Care Teams Senior Mobile Developer Relationship Specialty [place] [address] [facility] [address] [place] [address] PCP - General FAMILY PRACTICE 12/18/21 Dale Ball MD [address] [place] [address] Consulting Physician INTERNAL MEDICINE 04/26/20 Trinh Ceja MD [address] [place] [address] Consulting Physician CARDIOVASCULAR DISEASE 04/26/20
--- NOTE | 2024-05-24 18:30 | ECG_ITS ---
Test Date: 2024-05-24 18:38:48 Measurements Intervals [place] Rate: 68 P: 38 [place]: 154 QRS: 83 QRSD: 98 T: 44 QT: 391 QTc: 418 Interpretive Statements SINUS RHYTHM NORMAL ECG No previous ECG available for comparison Electronically Signed On 05-25-2024 07:11:40 SURVEY COMPILER by Dequan Saenz D.O.
--- OUTSIDE RECORDS SUMMARY | 2024-05-24 18:30 | XMS_ITS | Clinical Summary ---
Author Organization [facility] [employer] [place] Address [address] [address] Care Team Providers Care Forming Operator Name Role Phone Hiwot Telles MD Primary Care Provider [phone] Allergies Active Allergy Reactions Criticality Noted Date Comments Scopolamine Hives,Itching,Rash,Swelling High 023 Medications traZODone (DESYREL) 50 mg tablet Take 2 Tablets (100 mg) by mouth daily at bedtime. 90 Tablet 3 Active clonazePAM (KlonoPIN) 1 mg tabletIndicatio ns:Anxiety state Take 1/2 to 1 tab every other day. No more than 12 tabs in 30 days. 10 Tablet 3 Active albuterol sulfate HFA 90 mcg/actuation aerosol inhaler Take 2 Puffs by inhalation every 4 hours as needed for Shortness of Breath or Wheezing. 18 Gram 3 Active escitalopram oxalate (LEXAPRO) 20 mg tabletIndicatio ns:Anxiety state TAKE 1 TABLET(20 MG) BY MOUTH DAILY 30 Tablet 3 Active ondansetron (ZOFRAN ODT) 8 mg Tablet, Rapid Dissolve 8 mg. Activ e semaglutide, weight loss, (Wegovy) 2.4 mg/0.75 mL Pen Injector Inject 0.75 mL (2.4 mg) by subcutaneous injection every 7 days. 9 mL 4 Active Active Problems Problem Noted Date Diagnosed Date Morbid obesity with body mass index of 40.0-49.9 08/11/2022 COREY (generalized anxiety disorder) 12/24/2021 Notalgia 11/25/2021 Lipoma of lower extremity 11/25/2021 Severe obesity (BMI 35.0-39.9) with comorbidity 01/13/2020 Fibrocystic disease of breast 11/04/2017 Anxiety 07/09/2017 Hyperlipidemia 07/09/2017 Hypertensive disorder 07/09/2017 Resolved Problems Problem Noted Date Diagnosed Date Resolved Date Dyspnea on exertion 04/12/2020 11/26/19 COVID-19 virus detected 03/13/202010/2020 Pneumonia due to severe acut e respiratory syndrome coronavirus 2 (SARS-CoV-2) 03/13/202010/2020 Obesity (BMI 35.0-39.9 without comorbidity) 01/13/2020 11/25/2021 Encounters Date Type Department Care Team Description 04/28/2024 External Device Data STL ABSTRACTION Provider, Abstract from Last 3 Months Family History Medical History Relation Name Comments High Cholesterol Brother NA Hypertension Brother NA No Known Problems Daughter High Cholesterol Father NA Cancer Maternal Grandfather NA High Cholesterol Maternal Grandmother NA Hypertension Maternal Grandmother NA Hypertension Mother NA Skin Cancer Mother NA Cancer Paternal Grandfather NA Alzheimer's Disease Paternal Grandmother NA High Cholesterol Paternal Grandmother NA Hypertension Paternal Grandmother NA Relation Name Status Comments Brother NA Alive Daughter Alive Father NA Alive Maternal Grandfather NA Maternal Grandmother NA Alive Mother NA Alive Paternal Grandfather NA Paternal Grandmother NA Alive Social History Tobacco Use Types Packs/Day Years Used Date Smoking Tobacco: Former Cigarettes 2 15 0 06/04/1992 - 06/05/2007 Smokeless Tobacco: Never Tobacco Cessation:Counseling Given: Not Answered Alcohol Use Standard Drinks/Week Comments Yes 0 (1 standard drink = 0.6 oz pur e alcohol) Maybe every 4 to 6 months Comments No Sex and Gender Information Value Date Recorded Sex Assigned at Not on file Legal Sex Female 7:30 AM CDT Gender Identity Not on file Sexual Orientation Not on file 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 Not on file Not on file Last Filed Vital Signs Vital Sign Reading Time Taken Comments Blood Pressure 104/68 10/20/2022 8:24 AM CDT Pulse 80 10/20/2022 8:24 AM CDT Temperature 36.6 C (97.8 F) 10/20/2022 8:24 AM CDT Respiratory Rate 16 10/20/2022 8:24 AM CDT Oxygen Saturation 95% 10/20/2022 8: 24 AM CDT Inhaled Oxygen Concentration - - Weight 98.3 kg (216 lb 12.8 oz) 10/20/2022 8:24 AM CDT Height 165.1 cm (5' 5 ) 10/20/2022 8:24 AM CDT Body Mass Index 36.08 10/20/2022 8:24 AM CDT Plan of Treatment Health Maintenance Due Date Last Done Comments DTAP/TDAP/TD VACCINES (1 - Tdap) 1995 HEPATITIS B VACCINES (1 of 3 - 19+ 3-dose series) 1995 BREAST CANCER SCREENING 11/24/2020 11/25/2019, 11/04 COLORECTAL SCREENING 2021 Colorectal Cancer Screening 2021 FIT-DNA Q 3 years 2021 FIT/FOBT Q 1 year 2021 Flex Sig/CT Colonography Q 5 years 2021 INFLUENZA VACCINE (#1) 2023 , 01/06/2022, 01/28/2021, Additional history exists Preventative Visit- Commercial 04/06/2024 06/24/2022 , 07/09/2017 CERVICAL CANCER SCREENING 06/24/2025 06/24/2022, Pre-Diabetes and Diabetes Screening 11/28/2025 11/28/2022, 12/19/2021 Procedures Procedure Name Priority Date/Time Associated Diagnosis Comments HEMOGLOBIN A1C Routine 11/28/2022 8:33 AM CDT Anxiety state Essential hypertension Hyperlipidemia, unspecified hyperlipidemia type CERV/VAG CYTO AGE BASED SCREEN PAP Routine 06/24/2022 3:00 PM CDT Screening for cervical cancer from Last 3 Months or Most Recently Relevant to Health Maintenance Results * HEMOGLOBIN A1C (11/28/2022 8:33 AM CDT) HEMOGLOBIN A1C 5.1 <5.7 % of total Hgb [facility] Comment: For the purpose of screening for the presence of diabetes: <5.7% Consistent with the absence of diabetes 5.7-6.4% Consistent with increased risk for diabetes (prediabetes) > or =6.5% Consistent with diabetes This assay result is consistent with a decreased risk of diabetes. Currently, no consensus exists regarding use of hemoglobin A1c for diagnosis of diabetes in children. According to [place] Diabetes Association (ADA) guidelines, hemoglobin A1c <7.0% represents optimal control in non- diabetic patients. Different metrics may apply to specific patient populations. Standards of Medical Care in Diabetes(ADA). ESTIMATED AVERAGE GLUCOSE (MG/DL) 100 mg/dL [facility] ESTIMATED AVERAGE GLUCOSE (MMOL/L) 5.5 mmol/L [facility] Comment: Test Performed at: [facility] [address] [facility] [address] Janet Harris MD Blood 11/28/2022 8:33 AM CDT 11/29/2022 3:27 AM CDT us Hiwot Telles MD CHEMISTRY ORDERABLES Final Re sult [facility] [phone] [facility] [address] [place] [address] * CERV/VAG CYTO AGE BASED SCREEN PAP (06/24/2022 3:00 PM CDT) COMMENT (PAP): [facility] Comment: This order for age-based cervical cancer and STI screening follows ACOG guidelines(PB 168, 140, RVV687). See individual assays for performing site location. CLINICAL INFORMATION [facility] Comment:Routine exam LAST MENSTRUAL PERIOD [facility] Comment:S/P ENDOMETRIAL ABLA PREV PAP: [facility] Comment:NONE GIVEN PREV BX: [facility] [place] Comment:NONE GIVEN SOURCE [facility] Comment:Endocervix ADEQUACY: [facility] Comment: Satisfactory for evaluation. Endocervical/transformation zone component present. PAP INTERP [facility] Comment:Negative for intraep ithelial lesion or malignancy. COMMENT (PAP TEST) [facility] Comment: This case could not be evaluated with computer assisted technology. The slide was manually screened according to routine procedures. COMMERCIAL BAKING TEACHER: Julissa Teran Comment: KINGA CT(ASCP) CT screening location: [place] [address] [place] [address] EXPLANATORY NOTE Que American Oil SolutionsWolf Teran Comment: EXPLANATORY NOTE: The Pap is a screening test for cervical cancer. It is not a diagnostic test and is subject to false negative and false positive results. It is most reliable when a satisfactory sample, regularly obtained, is submitted with relevant clinical findings and history, and when the Pap result is evaluated along with historic and current clinical information. HPV E6/E7 Not Detected Not Detected [facility]ul Comment: Methodology: Pharmacy Sales Assistant-Mediated Amplification This assay detects E6/E7 viral messenger RNA (mRNA) from 14 high-risk HPV types (16,18,31,33,35,39,45,51,52,56,58,59,66,68). Cervical sources are required for HPV testing. If a vaginal source from a patient who has had a total hysterectomy with removal of cervix was submitted, please contact the testing laboratory for alternative testing options. For additional information, please refer to http://education.Proposify/faq/DEP644n4 (This link if provided for information/ educational purposes only.) Test Performed at: [facility] [address] [address] Janet BELL Genital SWAB OF ENDOCERVIX / Unknown 06/24/2022 3:00 PM CDT 06/24/2022 11:26 PM CDT Hiwot Telles MD PATHOLOGY/CYTOLOGY ORDERABLES Final Result [facility] [phone] [facility] [address] [address] from Last 3 Months or Most Recently Relevant to Health Maintenance Insurance ALLEGIANCE OPEN ACCESS OPEN ACCESS Care Teams Forming Operator Relationship Specialty Start Date End [place] [address] PCP - General Family Practice 11/25/21
--- NOTE | 2024-05-24 18:46 | ED.GENADULT ---
HPI - General Adult General Chief complaint: Chest Pain Stated complaint: chest pain Time Seen by Provider: 05/24/24 18:30 History of Present Illness HPI narrative: Nikki is a 48F with a PMH of HTN, anxiety, migraines, and non-displaced sacral fracture that presented to the ED with chest pain for a day. She has had central chest pain that radiates to both sides of the chest as well as burning into her throat. She feels lightheaded but no syncope, nausea, or vomiting. She admits constipation. She had a migraine and had 15 or so ibuprofen yesterday. She took full dose aspirin at home. Related Data Home Medications ?Medication ?Instructions ?Recorded ?Confirmed ?Last Taken ?Type clonazepam 1 mg tablet (Klonopin) 1 mg PO DAILY PRN Anxiety 03/04/20 09/12/23 03/03/20 History escitalopram oxalate 20 mg tablet 20 mg PO DAILY 06/30/23 09/12/23 Unknown History (Lexapro) semaglutide (weight loss) 0.25 0.25 mg subcut WEEKLY 06/30/23 09/12/23 Unknown History mg/0.5 mL subcutaneous pen injector (Wegovy) cyclobenzaprine 5 mg tablet 5 mg PO TID 09/12/23 09/12/23 Unknown History hydrocodone 5 mg-acetaminophen 325 1 tablet PO PRN PRN Pain 09/12/23 09/12/23 Unknown History mg tablet Allergies Allergy/AdvReac Type Severity Reaction Status Date / Time scopopalimine Allergy Rash Uncoded 05/24/24 18:35 Review of Systems Review of Systems: All systems reviewed & are unremarkable except as noted in HPI and below PMFSH Past Medical History Medical History Abnormal uterine bleeding Pelvic pain Heart attack Anxiety Surgical History Surgical History History of endometrial ablation History of removal of ovarian cyst H/O dilation and curettage H/O nasal polypectomy Family History Family History Mother Hypertension Squamous cell carcinoma Father Heart disease Hyperlipidemia Sibling Hypertension Depression Anxiety Social History Social History Smoking status: Former smoker Second hand tobacco smoke exposure: No Smoking end date: 04/06/08 Alcohol intake: never Substance use: never Substance use type: does not use Do You Feel Safe in your Home?: Yes Lack of Transportation: No Lack of Food: Never True Current Housing: I Have Housing Concerned About Future Housing: No Difficulty Paying Gas/Electric Bills: No Difficulty Paying for Meds: No Currently Unemployed: YES Education: Bachelor's Degree Difficulty w/ Childcare or Family Care: No Gender identity (if verbalized by the patient): Female Sexual Orientation (if Verbalized by the Patient): Straight or Heterosexual Spiritual care concerns: No Exam Const: General: cooperative, healthy appearing, comfortable, no acute distress, well developed, alert, awake and Physically active Orientation/consciousness: oriented to person, oriented to place and oriented to time HENMT: Head: normal to inspection, normocephalic and atraumatic Ears: hearing grossly normal bilaterally and external ears normal Face/Nose/Sinus: Normal external nose present Eyes: General: appearance normal, both eyes and all related structures Periorbital: periorbital findings normal Sclera: sclerae normal Pupils: Equal, round and reactive pupils present Neck: Neck: normal visual inspection Chest: Chest palpation & inspection: normal inspection of the chest Resp: Effort & Inspection: normal respiratory effort, able to speak in complete sentences and no respiratory distress Auscultation: clear to auscultation bilaterally Cardio: Jugular venous distension: no JVD Rate: regular rate Rhythm: regular rhythm GI: Inspection: normal to inspection GI Palp: Yes Soft to palpation Auscultation: normal bowel sounds Skin: General skin exam: normal color and no rashes or lesions noted Neuro: General: oriented to person, oriented to place and oriented to time Cranial nerves: Yes Equal, round and reactive pupils present Extrem: General: normal to inspection Course Course Emergency Course: Ordered labs, CXR, EKG. No aspirin was ordered as she took 325 at home. Ordered GI cocktail as well. EXAMINATION: XR chest 1V portable Exam Date/Time: 05/24/2024 18:42 HANDLE AND VENT MACHINE OPERATOR HISTORY: chest pain Comparison: 05/29/2023. RESULT: Lines, tubes, and devices: None. Lungs and pleura: Clear. Cardiomediastinal silhouette: Stable. Other: No acute osseous or upper abdominal finding. IMPRESSION: No acute cardiopulmonary process. CBC unremarkable, Mg was slightly low so it was replaced. Negative viral testing Repeat troponin was negative. Chest pain was improved as well. Vital Signs Vital signs: Vital Signs Temperature 98.0 F 05/24/24 18:27 Pulse Rate 76 05/24/24 18:27 Respiratory Rate 18 05/24/24 18:27 Blood Pressure 115/69 05/24/24 18:27 Pulse Oximetry 98 05/24/24 18:27 Oxygen Delivery Room Air 05/24/24 18:27 Temperature 98.0 F 05/24/24 18:27 Pulse Rate 63 05/24/24 21:15 Respiratory Rate 16 05/24/24 21:15 Blood Pressure 95/63 L 05/24/24 21:01 Pulse Oximetry 95 05/24/24 21:15 Oxygen Delivery Room Air 05/24/24 18:27 Medical Decision Making Vital Signs Vital Signs: Vital Signs Temperature 98.0 F 05/24/24 18:27 Pulse Rate 76 05/24/24 18:27 Respiratory Rate 18 05/24/24 18:27 Blood Pressure 115/69 05/24/24 18:27 Pulse Oximetry 98 05/24/24 18:27 Oxygen Delivery Room Air 05/24/24 18:27 Temperature 98.0 F 05/24/24 18:27 Pulse Rate 63 05/24/24 21:15 Respiratory Rate 16 05/24/24 21:15 Blood Pressure 95/63 L 05/24/24 21:01 Pulse Oximetry 95 05/24/24 21:15 Oxygen Delivery Room Air 05/24/24 18:27 Lab Data 05/24/24 18:51 05/24/24 18:51 Labs: Lab Results 05/24/24 05/24/24 Range/Units 18:51 21:19 WBC 8.1 (4.8-10.8) K/mm3 RBC 4.26 (4.20-5.40) M/mm3 Hgb 12.7 (12.0-15.0) g/dL Hct 37.9 (35.0-49.0) % MCV 89.0 (78.0-102.0) fL MCH 29.8 (27.0-31.0) pg MCHC 33.5 (32-36) g/dL RDW 11.8 (11.6-14.4) % Plt Count 258 (150-420) K/mm3 MPV 10.0 (9.2-11.8) fl Immature Gran % (Auto) 0.4 H (0.0-0.0) % Neut % (Auto) 55.0 (50.0-70.0) % Lymph % (Auto) 35.6 (18.0-42.0) % [place] % (Auto) 6.0 (2.0-11.0) % Eos % (Auto) 2.3 (1.0-6.0) % Baso % (Auto) 0.7 (0.0-1.0) % Lymph # (Auto) 2.90 (1.10-4.50) K/mm3 [place] # (Auto) 0.49 (0.10-0.90) K/mm3 Eos # (Auto) 0.19 (0.02-0.50) K/mm3 Baso # (Auto) 0.06 (0.00-0.10) K/mm3 Abs Immat Gran (auto) 0.03 H (0.00-0.00) K/mm3 Absolute Neuts (auto) 4.47 (1.70-7.20) K/mm3 Absolute Nucleated RBC 0.00 (0.00-0.00) K/mm3 Nucleated RBC % 0.0 (0-0.0) % PT 10.7 (9.50-12.1) Seconds INR 1.0 Sodium 140 (136-145) mmol/L Potassium 3.8 (3.5-5.1) mmol/L Chloride 103 (98-108) mmol/L Carbon Dioxide 29 (21-32) mmol/L Anion Gap 8 (4-12) mmol/L BUN 20 H (7-18) mg/dL Creatinine 0.78 (0.55-1.02) mg/dL Estim Creat Clear Calc 79 ml/min Estimated GFR > 60 (59 - ) Glucose 88 (70-99) mg/dL Calculated Osmolality 291 (285-295) mOsm/kg Calcium 9.0 (8.5-10.1) mg/dL Magnesium 1.5 L (1.8-2.4) mg/dL Total Bilirubin 1.1 H (0.00-1.00) mg/dL AST 17 (15-37) U/L ALT 25 (14-59) U/L Alkaline Phosphatase 54 (46-116) U/L Troponin I < 4.0 < 4.0 (0.00-60.4) ng/L NT-Pro-B Natriuret Pep 25 (0-125) pg/mL Total Protein 6.1 L (6.4-8.2) g/dL Albumin 3.6 (3.4-5.0) g/dL Lipase 52 (16-77) U/L Influenza A (RT-PCR) Negative (Negative) Influenza B (RT-PCR) Negative (Negative) RSV (RT-PCR) Negative (Negative) SARS-CoV-2 RNA (RT-PCR) Negative (Negative) Discharge Plan Discharge Clinical Impression: Chest pain Patient Disposition: Home, Self-Care Condition: Stable Instructions: Chest Pain (ED) Patient Language: [place] Prescriptions: No Action hydrocodone-acetaminophen 5-325 mg tablet 1 tablet PO PRN PRN (Reason: Pain) cyclobenzaprine 5 mg tablet 5 mg PO TID Wegovy 0.25 mg/0.5 mL pen injector 0.25 mg subcut WEEKLY Rx Instructions: administer weeks 1 through 4 of therapy escitalopram oxalate [Lexapro] 20 mg tablet 20 mg PO DAILY clonazepam [Klonopin] 1 mg tablet 1 mg PO DAILY PRN (Reason: Anxiety) Rx Instructions: #20 Follow-up/Referrals: Matthew,Megan Reed MD [Primary Care Provider] -
[2024-05-24 18:55] LABS: Basophils Absolute Auto 0.06 K/mm3 (0.00-0.10); Basophils Percent Auto 0.7 % (0.0-1.0); Eosinophils Absolute Auto 0.19 K/mm3 (0.02-0.50); Eosinophils Percent Auto 2.3 % (1.0-6.0); Hematocrit 37.9 % (35.0-49.0); Hemoglobin 12.7 g/dL (12.0-15.0); Immature Granulocyte Absolute 0.03 K/mm3 (0.00-0.00); Immature Granulocyte Percent A 0.4 % (0.0-0.0); Lymphocytes Percent Auto 35.6 % (18.0-42.0); Mean Corpuscular HGB Conc 33.5 g/dL (32-36); Mean Corpuscular Hemoglobin 29.8 pg (27.0-31.0); Monocytes Absolute Auto 0.49 K/mm3 (0.10-0.90); Neutrophils Absolute Auto 4.47 K/mm3 (1.70-7.20); Platelet Count Result 258 K/mm3 (150-420); Red Blood Count 4.26 M/mm3 (4.20-5.40); Red Cell Distribution Width 11.8 % (11.6-14.4); White Blood Count 8.1 K/mm3 (4.8-10.8)
[2024-05-24] MEDS: MAG HYDROX/ALUMINUM HYD/SIMETH 30 ML, PHENobarb/HYOSCY/ATROPINE/SCOP 32.4 MG, LIDOCAINE... PO (19:03)
[2024-05-24 19:07] LABS: Prothrombin Time 10.7 Seconds (9.50-12.1)
--- OUTSIDE RECORDS SUMMARY | 2024-05-24 19:07 | XMS_ITS | Encounter Summary ---
Author Organization [facility] Address [address] [place] [address] Care Team Providers Care Sawdust Drier Name Role Phone Hiwot Telles MD Primary Care Provider [phone] Encounter Details Date Type Department Care Team (Late st Contact Info) Description 12/10/2021 Abstract [facility] Surgical Spec [place] [address] [place] [address] Floridalma Mandel MD [address] [place] [address] Social History Tobacco Use Types [...] on filedocumented in this encounter Care Teams Sawdust Drier Relationship Specialty Start Date End Date Hiwot Telles MD [address] [place] [address] PCP - General Family Practice 11/25/21 documented as of this encounter
--- OUTSIDE RECORDS SUMMARY | 2024-05-24 19:07 | XMS_ITS | Clinical Summary ---
Author Organization [facility] Address [address] [place] [address] Care Team Providers Care Driller'S Assistant Name Role Phone Dale Ball MD Unavailable [phone] Trinh Ceja MD Unavailable Hiwot Telles MD Primary Care Provider Allergies Active Allergy [...] on file Legal Sex Female 5:55 PM GEOSPATIAL SYSTEMS INTEGRATOR Gender Identity Not on file Sexual Orientation Not on file Last Filed Vital Signs Vital Sign Reading Time Taken Comments Blood Pressure 116/67 02/22/2023 10:30 PM GEOSPATIAL SYSTEMS INTEGRATOR Pulse 69 02/22/2023 11:45 PM GEOSPATIAL SYSTEMS INTEGRATOR Temperature 35.7 C (96.3 F) 02/22/2023 8:50 PM GEOSPATIAL SYSTEMS INTEGRATOR Respiratory Rate 15 02/22/2023 10:00 PM GEOSPATIAL SYSTEMS INTEGRATOR Oxygen Saturation 96% 02/22/2023 11:45 PM GEOSPATIAL SYSTEMS INTEGRATOR Inhaled Oxygen Concentration - - Weight 78.9 kg (174 lb) 02/22/2023 8:50 PM GEOSPATIAL SYSTEMS INTEGRATOR Height 165.1 cm (5' 5 ) 02/22/2023 8:50 PM GEOSPATIAL SYSTEMS INTEGRATOR Body Mass Index 28.96 02/22/2023 8:50 PM GEOSPATIAL SYSTEMS INTEGRATOR Plan of Treatment Health Maintenance Due Date [...] one year would seem adequate. Yoana Rolle INSULATION BOARD COATER OPERATOR MAMMO Final Re sult from Last 3 Months or Most Recently Relevant to Health Maintenance Insurance [employer] Care Teams Driller'S Assistant Relationship Specialty [place] [address] [facility] [address] [place] [address] PCP - General FAMILY PRACTICE 12/18/21 Dale Ball MD [address] [place] [address] Consulting Physician INTERNAL MEDICINE 04/26/20 Trinh Ceja MD [address] [place] [address] Consulting Physician CARDIOVASCULAR DISEASE 04/26/20
--- OUTSIDE RECORDS SUMMARY | 2024-05-24 19:07 | XMS_ITS | Encounter Summary ---
Author Organization [facility] Address [address] [place] [address] Care Team Providers Care Language Specialist Name Role Phone Hiwot Telles MD Primary Care Provider [phone] Encounter Details Date Type Department Care Team (Late st Contact Info) Description 12/10/[address] [facility] Surgical Spec [place] [address] [place] [address] Floridalma Mandel MD [address] [facility] [address] [place] [address] Social History Tobacco Use Types [...] on filedocumented in this encounter Care Teams Language Specialist Relationship Specialty Start Date End Date Hiwot Telles MD [address] [place] [address] PCP - General Family Practice 11/25/21 documented as of this encounter
--- OUTSIDE RECORDS SUMMARY | 2024-05-24 19:07 | XMS_ITS | Clinical Summary ---
Author Organization [facility] [employer] [facility] Address [address] [address] Care Team Providers Care It Programmer Analyst Name Role Phone Hiwot Telles MD Primary Care Provider [phone] Allergies Active Allergy Reactions Criticality Noted Date [...] diagnosis of diabetes in children. According to [place] Diabetes Association (ADA) guidelines, hemoglobin A1c <7.0% represents optimal control in non- diabetic patients. Different metrics may apply to specific patient populations. Standards of Medical Care in Diabetes(ADA). ESTIMATED AVERAGE GLUCOSE (MG/DL) 100 mg/dL [facility] ESTIMATED AVERAGE GLUCOSE (MMOL/L) 5.5 mmol/L [facility] Comment: Test Performed at: [facility] [address] [facility] [place] [address] Janet Harris MD Blood 11/28/2022 8:33 AM CDT 11/29/2022 3:27 AM CDT us Hiwot Telles MD CHEMISTRY ORDERABLES Final Re sult [facility] [phone] [facility] [address] [facility] [place] [address] * CERV/VAG CYTO AGE BASED SCREEN PAP (06/24/2022 3:00 PM CDT) COMMENT (PAP): [facility] Comment: This order for age-based cervical cancer and STI screening follows ACOG guidelines(PB 168, 140, AFL216). See individual assays for performing site location. CLINICAL INFORMATION Etable Comment:Routine exam LAST MENSTRUAL PERIOD [facility] Comment:S/P ENDOMETRIAL ABLA PREV PAP: [facility] Comment:NONE GIVEN PREV BX: [facility] [place] Comment:NONE GIVEN SOURCE [facility] Comment:Endocervix ADEQUACY: [facility] Comment: Satisfactory for evaluation. Endocervical/transformation zone component present. PAP INTERP [facility] Comment:Negative for intraep ithelial lesion or malignancy. COMMENT (PAP TEST) [facility] Comment: This case could not be evaluated with computer assisted technology. The slide was manually screened according to routine procedures. RUBBER COVERING MACHINE OPERATOR: Julissa Teran Comment: KINGA CT(ASCP) CT screening location: [place] [address] [place] [address] EXPLANATORY NOTE Que beModelWolf Teran Comment: EXPLANATORY NOTE: The Pap is [...] information. HPV E6/E7 Not Detected Not Detected [facility] Parul Comment: Methodology: Network Internship-Mediated Amplification This assay detects E6/E7 viral messenger RNA (mRNA) from 14 high-risk HPV types (16,18,31,33,35,39,45,51,52,56,58,59,66,68). Cervical sources are required for HPV testing. If a vaginal source from a patient who has had a total hysterectomy with removal of cervix was submitted, please contact the testing laboratory for alternative testing options. For additional information, please refer to http://education.MuscleGenes/faq/JUJ149b6 (This link if provided for information/ educational purposes only.) Test Performed at: [facility] [address] [address] Janet BELL Genital SWAB OF ENDOCERVIX / Unknown 06/24/2022 3:00 PM CDT 06/24/2022 11:26 PM CDT Hiwot Telles MD PATHOLOGY/CYTOLOGY ORDERABLES Final Result [facility] [phone] [facility] [address] [address] from Last 3 Months or Most Recently Relevant to Health Maintenance Insurance ALLEGIANCE OPEN ACCESS OPEN ACCESS Care Teams It Programmer Analyst Relationship Specialty Start Date End [place] [address] PCP - General Family Practice 11/25/21
--- OUTSIDE RECORDS SUMMARY | 2024-05-24 19:07 | XMS_ITS | Encounter Summary ---
Author Organization [facility] Address Formerly [facility] [place] [address] Care Team Providers Care Acoustical Tile Carpenters Supervisor Name Role Phone Dale Ball MD Unavailable [phone] Trinh Ceja MD Unavailable Hiwot Telles MD Primary Care Provider Encounter Details Date Type Department Care Team (Late st Contact Info) Description 05/13/2022 [employer] [facility] Patient Accounts [address] [place] [address] [facility] Provider Monthly Credit Card Payment Social History Tobacco Use Types Packs/Day Years Used Date Smoking Tobacco: Former Cigarettes Smokeless Tobacco: Never Comments:quit 13yrs ago Alcohol Use Standard Drinks/Week Comments Not Currently 0 (1 standard drink = 0.6 oz pur e alcohol) Comments No Sex and Gender Information Value Date Recorded Sex Assigned at Not on file Legal Sex Female 5:55 PM ENGINEERING RECRUITER Gender Identity Not on file Sexual Orientation [...] documented as of this encounter Care Teams Acoustical Tile Carpenters Supervisor Relationship Specialty [place] [address], [address] [place] [id number] PCP - General FAMILY PRACTICE 12/18/21 Dale Ball MD [address] [place] [address] Consulting Physician INTERNAL MEDICINE 04/26/20 Trinh Ceja MD [address] [place], [place] [id number] Consulting Physician CARDIOVASCULAR DISEASE 04/26/20 documented as of this encounter
[2024-05-24 19:17] LABS: Alanine Aminotransferase 25 U/L (14-59); Albumin Level 3.6 g/dL (3.4-5.0); Alkaline Phosphatase 54 U/L (46-116); Anion Gap 8 mmol/L (4-12); Aspartate Amino Transferase 17 U/L (15-37); Bilirubin,Total 1.1 mg/dL (0.00-1.00); Blood Urea Nitrogen 20 mg/dL (7-18); Carbon Dioxide 29 mmol/L (21-32); Chloride 103 mmol/L (98-108); Estimated CRCL calculation 79 ml/min; Estimated Glomerular Filt Rate > 60; Glucose 88 mg/dL (70-99); Lipase 52 U/L (16-77); Magnesium 1.5 mg/dL (1.8-2.4); NT Pro B Type Natriuretic Pept 25 pg/mL (0-125); Osmolality Calculated 291 mOsm/kg (285-295); Potassium 3.8 mmol/L (3.5-5.1); Sodium 140 mmol/L (136-145); Total Protein 6.1 g/dL (6.4-8.2)
[2024-05-24 19:18] LABS: Troponin I < 4.0 ng/L (0.00-60.4)
[2024-05-24 19:36] LABS: SARS-CoV-2 RNA PCR Negative (Negative)
[2024-05-24 19:54] LABS: Influenza A QL RT-PCR Negative (Negative); Influenza B QL RT-PCR Negative (Negative); RSV RNA, RT-PCR Negative (Negative)
[2024-05-24] MEDS: LORazepam INJ (*CRX) 2 MG/ML VIAL 0.5 MG IV PUSH (20:07)
[2024-05-24] MEDS: MAGNESIUM OXIDE 400 MG TABLET PO (20:36)
--- NOTE | 2024-05-24 21:17 | PC.NURSE ---
ERP aware of vitals. No new orders.
[2024-05-24 21:42] LABS: Troponin I < 4.0 ng/L (0.00-60.4)
== END 2024-05-24 22:05 | disposition home or self-care (01) ==
PROVIDERS: Emergency Provider Family Medicine; PCP Family Medicine
DX: R07.9 Chest pain, unspecified (principal); Z87.891 Personal history of nicotine dependence; Z20.822 Contact with and (suspected) exposure to COVID-19
CPT/HCPCS: 36415; 71045; 80053; 83690; 83735; 83880; 84484; 85025; 85610; 87637; 93005; 96374; 99284; A9270; J2060